=== PATIENT | female | born 1940 | race Caucasian/White ===

== ENCOUNTER 2018-02-05 09:47 | Emergency (ER) | payer OTHER ==
--- NOTE | 2018-02-05 09:51 | PDOC ---
History of Present Illness - General Chief Complaint: Injury Stated Complaint: FALL, LACERATION TO FACE Time Seen by Provider: 02/05/18 09:51 History Source: Patient Exam Limitations: No Limitations - History of Present Illness Initial Comments: 02/05/18 10:45 Pt presents to the ED after mechanical slip and fall in the supermarket. Patient denies LOC, extremity, chest or abdominal pain. Able to recall the entire incident and to ambulate immediately afterward. Denies headache, nausea or vomiting. Presented to the ED because she has a small laceration above her L eye and she is concerned that the laceration might need stitches. Past History - Past Medical History Allergies/Adverse Reactions: Allergies Allergy/AdvReac Type Severity Reaction Status Date / Time Penicillins Allergy Intermediate Hives Verified 02/05/18 09:48 Home Medications: Ambulatory Orders Buspirone HCl [Buspar -] 30 mg PO DAILY 02/05/18 Olanzapine 5 mg PO DAILY 02/05/18 Anemia: Yes ( CHILD) Asthma: No Cancer: No Cardiac Disorders: No CVA: No COPD: No CHF: No Dementia: No Diabetes: No GI Disorders: No Disorders: No HTN: No Hypercholesterolemia: No Liver Disease: No Psychiatric Problems: Yes (ANXIETY) Seizures: No Thyroid Disease: No - Surgical History Abdominal Surgery: Yes (choleycystectomy) Appendectomy: No Cardiac Surgery: No Cholecystectomy: Yes Lung Surgery: No Neurologic Surgery: No Orthopedic Surgery: No - Immunization History Immunization Up to Date: (unknown) - Suicide/Smoking/Psychosocial Hx Smoking Status: Yes Smoking History: Former smoker Years of Tobacco Use: 12 Have you smoked in the past 12 months: No Number of Cigarettes Smoked Daily: 0 If you are a former smoker, when did you quit?: 1999 Hx Alcohol Use: Yes (2 GLASSS PER WEEK) Drug/Substance Use Hx: No Substance Use Type: Alcohol Hx Substance Use Treatment: No Review of Systems - Review of Systems Able to Perform ROS?: Yes Is the patient limited German proficient: No Constitutional: No: Symptoms Reported, See HPI, Chills, Diaphoresis, Fever, Loss of Appetite, Malaise, Night Sweats, Weakness, Weight Stable, Unintentional Wgt. Loss, Unexplained wgt Loss, Other HEENTM: No: Symptoms Reported, See HPI, Eye Pain, Blurred Vision, Tearing, Recent change in vision, Double Vision, Cataracts, Ear Pain, Ocular Prothesis, Ear Discharge, Nose Pain, Nose Congestion, Tinnitus, Nose Bleeding, Hearing Loss , Throat Pain, Throat Swelling, Mouth Pain, Dental Problems, Difficulty Swallowing, Mouth Swelling, Other Respiratory: No: Symptoms reported, See HPI, Cough, Orthopnea, Shortness of Breath, SOB with Exertion, SOB at Rest, Stridor, Wheezing, Productive cough, Hemoptysis, Other Cardiac (ROS): No: Symptoms Reported, See HPI, Chest Pain, Edema, Irregular Heart Rate, Lightheadedness, Palpitations, Syncope, Chest Tightness, Other ABD/GI: No: Symptoms Reported, See HPI, Abdominal Distended, Abd. Pain w/ defecation, Blood Streaked Bowels, Constipated, Diarrhea, Difficulty Swallowing , Nausea, Poor Appetite, Poor Fluid Intake, Rectal Bleeding, Vomiting, Indigestion, Abdominal cramping, Tarry Stools, Other : No: Symptoms Reported, See HPI, Burning, Dysuria, Discharge, Frequency, Flank Pain, Hematuria, Incontinence, Pain, Urgency, Testicular Mass, Testicular Swelling, Lesions, Testicular Pain, Other Musculoskeletal: No: Symptoms Reported, See HPI, Back Pain, Gout, Joint Pain, Joint Swelling, Muscle Pain, Muscle Weakness, Neck Pain, Joint Stiffness, Other Integumentary: Yes: Other (wound above l eyebrow). No: Symptoms Reported, See HPI, Bruising, Change in Color, Change in Hair/Nails, Dryness, Erythema, Flushing, Lesions, Lumps, Pallor, Pruritus, Rash, Sweating Neurological: No: Symptoms reported, See HPI, Headache, Numbness, Paresthesia, Pre-Existing Deficit, Seizure, Tingling, Tremors, Weakness, Unsteady Gait, Ataxia, Dizziness, Other *Physical Exam - Physical Exam General Appearance: Yes: Nourished, Appropriately Dressed. No: Apparent Distress, Disheveled, Mild Distress, Moderate Distress, Severe Distress, Alcohol on Breath, Intoxicated, Cachetic, Obese, Thin, Other HEENT: positive: EOMI, Normal ENT Inspection Neck: positive: Supple (no spinous process tenderness) Respiratory/Chest: positive: Lungs Clear, Normal Breath Sounds Cardiovascular: positive: Regular Rhythm, Regular Rate Musculoskeletal: positive: Normal Inspection Extremity: positive: Normal Capillary Refill Integumentary: positive: Normal Color, Dry, Warm, Other (1 cm laceration in L eyebrow) Neurologic: positive: instructor weaving II-XII NML intact, Fully Oriented, Alert, Normal Mood/ Affect Procedures - Laceration/Wound Repair Left Face Wound Length: to 2.5 cm Wound Explored: clean Wound's Depth, Shape: superficial Irrigated w/ Saline: Yes Betadine Prep: No Anesthesia: 1% Lidocaine w/ Epi Amount of Anesthetic (ccs): 1 Wound Debrided: minimal Wound Repaired With: Sutures Suture Size/Type: 6:0, nylon Number of Sutures: 2 Layer Closure: No Sterile Dressing Applied: Yes Medical Decision Making - Medical Decision Making 02/05/18 10:18 Pt presents to the ED with laceration to the face after mechanical slip and fall. Denies LOC. able to recall entire incident. No use of blood thinners. Laceration repaired in the ED . Will discharge home. Patient instructed to return immediately to the ED for new or worsening symptoms. She understands that her age puts her at increased risk for ICH. I have explained to her that I believe she is low risk given her absence of symptoms, but that she must return immediately for headache or vomiting. She declines CT at this time. 02/05/18 10:23 *DC/Admit/Observation/Transfer Diagnosis at time of Disposition: Laceration of face Qualifiers: Encounter type: initial encounter Qualified Code(s): S01.81XA - Laceration without foreign body of other part of head, initial encounter - Discharge Dispostion Disposition: HOME Condition at time of disposition: Good Decision to Admit order: No - Referrals Referrals: Oscar Kim MD [Primary Care Provider] - - Patient Instructions Printed Discharge Instructions: DI for Laceration Repair -- Simple, DI for Closed Head Injury Additional Instructions: return immediately to the ED for passing out, seizures, other new or worsening symptoms. Return for severe headaches, especially headaches with vomiting. return for redness or swelling in the wound, pus from the wound, other new or worsening symptoms. Make sure that you follow up with your doctor within three days. - Post Discharge Activity
[2018-02-05 09:53] VITALS: TEMP 98.2; BMI 22.3
[2018-02-05] MEDS ORDERED: LIDOCAINE 1%/EPI 1:100000 (20 ML MULTI DOSE VIAL) INF ONE (09:54)
[2018-02-05] MEDS ORDERED: LIDO 2%/EPI 1:200000 PRESRVFRE (20 ML SDVIAL) ONE (09:55)
[2018-02-05 10:24] VITALS: BP 151/78; PULSE 79
== END 2018-02-05 10:30 | disposition home or self-care (01) ==
LOC: FER 09:47
PROC: 0HQ1XZZ Repair Face Skin, External Approach (ICD-10-PCS; principal; 2018-02-05)
DX: S01.112A Laceration without foreign body of left eyelid and periocular area, initial encounter (principal); W18.39XA Other fall on same level, initial encounter; Y93.89 Activity, other specified; Y92.512 Supermarket, store or market as the place of occurrence of the external cause; Z87.891 Personal history of nicotine dependence; F41.9 Anxiety disorder, unspecified
CPT/HCPCS: 12011; 99284-25

== ENCOUNTER 2018-02-10 10:23 | Emergency (ER) | payer OTHER ==
[2018-02-10 10:31] VITALS: BP 134/59; PULSE 80; TEMP 98.2; BMI 21.9
--- NOTE | 2018-02-10 10:36 | PDOC ---
Suture Removal/Wound Check HPI - History of Present Illness Chief Complaint: Suture/Staple Removal(Here) Stated Complaint: SUTURE REMOVAL Time Seen by Provider: 02/10/18 10:36 - Onset of Previous Treatment Comment:: 02/10/18 10:37 Sutures removed 2 from minor laceration above the left eyebrow sustained last Thursday. Wound healing well. Edges well approximated. No drainage or other sign of infection. Continue to dress with bacitracin and cover with a Band-Aid for 3-5 more days until completely healed. Recheck if sign of infection Past History - Past Medical History Allergies/Adverse Reactions: Allergies Allergy/AdvReac Type Severity Reaction Status Date / Time Penicillins Allergy Intermediate Hives Verified 02/10/18 10:26 Home Medications: Ambulatory Orders Buspirone HCl [Buspar -] 30 mg PO DAILY 02/05/18 Olanzapine 5 mg PO DAILY 02/05/18 Anemia: Yes ( CHILD) Asthma: No Cancer: No Cardiac Disorders: No CVA: No COPD: No CHF: No Dementia: No Diabetes: No GI Disorders: No Disorders: No HTN: No Hypercholesterolemia: No Liver Disease: No Psychiatric Problems: Yes (ANXIETY DEPRESSION) Seizures: No Thyroid Disease: No - Surgical History Abdominal Surgery: Yes (choleycystectomy) Appendectomy: No Cardiac Surgery: No Cholecystectomy: Yes Lung Surgery: No Neurologic Surgery: No Orthopedic Surgery: No - Immunization History Immunization Up to Date: (unknown) - Suicide/Smoking/Psychosocial Hx Smoking Status: Yes Smoking History: Former smoker Years of Tobacco Use: 12 Have you smoked in the past 12 months: No Number of Cigarettes Smoked Daily: 0 If you are a former smoker, when did you quit?: 1999 Information on smoking cessation initiated: No Hx Alcohol Use: Yes (SOCIAL) Drug/Substance Use Hx: No Substance Use Type: Alcohol Hx Substance Use Treatment: No *Physical Exam - Vital Signs Last Vital Signs Temp Pulse Resp BP Pulse Ox 98.2 F 80 16 134/59 L 100 02/10/18 10:27 02/10/18 10:27 02/10/18 10:27 02/10/18 10:27 02/10/18 10:27 *DC/Admit/Observation/Transfer Diagnosis at time of Disposition: Visit for suture removal - Discharge Dispostion Disposition: HOME Condition at time of disposition: Improved Decision to Admit order: No - Referrals - Patient Instructions Printed Discharge Instructions: DI for Suture Removal - Post Discharge Activity
== END 2018-02-10 10:40 | disposition home or self-care (01) ==
LOC: FER 10:23
DX: Z48.02 Encounter for removal of sutures (principal)
CPT/HCPCS: 99281-25

== ENCOUNTER 2020-01-11 13:20 | Inpatient (IN) | payer OTHER ==
[2020-01-11] MEDS ORDERED: morphine CARPU-JECT 2 MG/1 ML DISP.SYRIN IVPUSH ONE ×2 (14:00→16:55)
--- NOTE | 2020-01-11 14:17 | PDOC ---
History of Present Illness - General Chief Complaint: Injury Stated Complaint: FALL Time Seen by Provider: 01/11/20 13:35 - History of Present Illness Initial Comments: 01/11/20 14:16 79yo female with PMH of anxiety presents with left hip pain after a fall. States, "I tripped on my own two feet," hit her left hip, did not hit her head or anything else. Denies chest pain, headache, SOB. Denies any other pain. When asked about the bruise on her knee, she said it is two days old and doesn't remember how she got it. Does not remember other falls. states she sometimes crawls to the bathroom at night and has lower back spinal stenosis and pain. ROS GENERAL/CONSTITUTIONAL: No fever or chills. No weakness. HEAD, EYES, EARS, NOSE AND THROAT: No change in vision. No ear pain or discharge. No sore throat. CARDIOVASCULAR: No chest pain or shortness of breath RESPIRATORY: No cough, wheezing, or hemoptysis. GASTROINTESTINAL: No nausea, vomiting, diarrhea or constipation. GENITOURINARY: No dysuria, frequency, or change in urination. MUSCULOSKELETAL: left hip pain. No neck or back pain. SKIN: No rash NEUROLOGIC: No headache, vertigo, loss of consciousness, or change in strength/sensation. ENDOCRINE: No increased thirst. No abnormal weight change HEMATOLOGIC/LYMPHATIC: No anemia, easy bleeding, or history of blood clots. ALLERGIC/IMMUNOLOGIC: No hives or skin allergy. PE GENERAL: Awake, alert, and fully oriented, in no acute distress HEAD: No signs of trauma, normocephalic, atraumatic EYES: PERRLA, EOMI, sclera anicteric, conjunctiva clear ENT: Auricles normal inspection, hearing grossly normal, nares patent, oropharynx clear without exudates. Moist mucosa NECK: Normal ROM, supple, no lymphadenopathy, JVD, or masses LUNGS: No distress, speaks full sentences, clear to auscultation bilaterally HEART: Regular rate and rhythm, normal S1 and S2, no murmurs, rubs or gallops, peripheral pulses normal and equal bilaterally. ABDOMEN: Soft, nontender, normoactive bowel sounds. No guarding, no rebound. No masses EXTREMITIES : echymosis over left knee without tenderness. left pelvic tenderness without obvious deformity or instability NEUROLOGICAL: not able to lift left leg off the bed. otherwise, normal strength and sensation in all extremities. SKIN: Warm, Dry, normal turgor, no rashes or lesions noted Back: no midline tenderness Vital Signs Temp Pulse Resp BP Pulse Ox 97.5 F L 94 H 16 142/64 95 01/11/20 13:28 01/11/20 13:28 01/11/20 13:28 01/11/20 13:28 01/11/20 13:28 MDM: 79yo female with PMH of anxiety presents with left hip pain after a fall, but may have had other falls that she does not recall, as she has echymosis over left knee. states she sometimes crawls to the bathroom at night. DDx includes ICH or c-spine pathology from old fall. Also may have left pelvic and/or knee fracture. -EKG -CXR -CBC, CMP, coags, T&S -2mg morphine, 1000mg tylenol -left pelvis/hip and knee plain films -CT head and c-spine 01/11/20 16:[address] Ulrich who will see the patient tomorrow. Non-operative Left hip/pelvis x-ray: Comminuted fractures of the superior and inferior left pubic ramus with slight inferior displacement of the medial segments. Partially visualized lower lumbar spine is suggestive of multilevel degenerative disc disease. Generalized osteopenia. -CT head and c-spine: negative for acute pathology -knee plain films and CXR: negative for acute pathology 01/11/20 16:55 Given another 2mg morphine IV for pain control 01/11/20 17:39 EKG: Sinus with PACs, rate 89, normal axis and intervals, no ischemic ST-T changes Labs: notable for WBC of 12 with left shift (likely reactive), hyponatremia to 129 Abnormal Lab Results 01/11/20 01/11/20 01/11/20 14:13 14:13 14:13 WBC 12.0 H Absolute Neuts (auto) 10.3 H Neutrophils % 85.8 H PTT (Actin FS) 36.6 H Sodium 129 L Chloride 95 L BUN 6.7 L AST 12 L Signed out to admitting team 01/11/20 17:41 Past History - Medical History Allergies/Adverse Reactions: Allergies Allergy/AdvReac Type Severity Reaction Status Date / Time Penicillins Allergy Intermediate Hives Verified 07/04/19 12:07 Home Medications: Ambulatory Orders Buspirone HCl [Buspar -] 30 mg PO DAILY 02/05/18 Benztropine Mesylate [Cogentin -] 0.5 mg PO BID 01/11/20 Haloperidol [Haldol -] 5 mg PO AM 01/11/20 Haloperidol [Haldol -] 10 mg PO HS 01/11/20 Anemia: Yes ( CHILD) Asthma: No Cancer: No Cardiac Disorders: No CVA: No COPD: No CHF: No DVT: No Dementia: No Diabetes: No Dialysis: No GI Disorders: No Disorders: No HTN: No Hypercholesterolemia: No Kidney Stones: No Liver Disease: No Psychiatric Problems: Yes (ANXIETY DEPRESSION) Seizures: No Thyroid Disease: No Lung CA: No - Surgical History Abdominal Surgery: Yes (choleycystectomy) Appendectomy: No Cardiac Surgery: No Cholecystectomy: Yes Gastric Stapling: No GI Surgery: No Lung Surgery: No Neurologic Surgery: No Orthopedic Surgery: No - Immunization History Immunization Up to Date: (unknown) - Psycho-Social/Smoking History Smoking Status: Yes Smoking History: Former smoker Years of Tobacco Use: 12 Have you smoked in the past 12 months: No Number of Cigarettes Smoked Daily: 0 If you are a former smoker, when did you quit?: 22 years ago Information on smoking cessation initiated: No - Substance Abuse Hx (Audit-C & DAST Scrn) How often the patient has a drink containing alcohol: 2-4 times / month How often the patient has six or more drinks on one occasion: Never Score: In Men: 4 or > Positive; In Women: 3 or > Positive: 2 Screen Result (Pos requires Nsg. Audit-10AR): Negative In the last yr the pt used illegal drug/Rx for NonMed reason: No Score: Yes response is considered Positive: 0 Screen Result (Positive result requires Nsg. DAST-10): Negative *Physical Exam - Vital Signs Last Vital Signs Temp Pulse Resp BP Pulse Ox 97.5 F L 94 H 16 142/64 95 01/11/20 13:28 01/11/20 13:28 01/11/20 13:28 01/11/20 13:28 01/11/20 13:28 ED Treatment Course - LABORATORY CBC & Chemistry Diagram: 01/11/20 14:13 01/11/20 14:13 Discharge - Discharge Information Problems reviewed: Yes Clinical Impression/Diagnosis: Cannot walk, Hyponatremia Pubic ramus fracture Qualifiers: Encounter type: initial encounter Fracture type: closed Laterality: left Qualified Code(s): S32.592A - Other specified fracture of left pubis, initial encounter for closed fracture Condition: Stable - Follow up/Referral Referrals: Oscar Kim MD [Primary Care Provider] - - Patient Discharge Instructions - Post Discharge Activity
[2020-01-11] MEDS ORDERED: MORPHINE SULFATE 2 MG/ML VIAL ONE (14:18)
[2020-01-11] MEDS ORDERED: ACETAMINOPHEN 1000 MG/100 ML VIAL (NON FORMULARY) IVPB ONE (14:26)
[2020-01-11] MEDS ORDERED: ACETAMINOPHEN INJECTION 100 ML IVPB ONE (14:27)
[2020-01-11 14:40] LABS: BASO % 0.5 % (0-2.0); EOS % 0.4 % (0-4.5); HEMATOCRIT 38.7 % (32.4-45.2); HEMOGLOBIN 13.1 GM/dL (10.7-15.3); LYMPH % 8.8 % (8-40); MCH 30.3 pg (25.7-33.7); MCHC 33.8 g/dl (32.0-36.0); MEAN CELL VOLUME 89.6 fl (80-96); MEAN PLT VOLUME 8.4 fl (7.5-11.1); MONO % 4.5 % (3.8-10.2); NEUT % 85.8 % (42.8-82.8); PLATELET COUNT 270 K/MM3 (134-434); RBC 4.32 M/mm3 (3.60-5.2); RDW 12.6 % (11.6-15.6)
[2020-01-11 14:47] LABS: INR 1.04 (0.83-1.09); PROTHROMBIN TIME (PATIENT) 12.3 SEC (9.7-13.0)
[2020-01-11 14:50] LABS: ACTIVATED PTT 36.6 SECONDS (25.2-36.5)
[2020-01-11 15:11] LABS: ALBUMIN 3.7 g/dl (3.4-5.0); BILIRUBIN,TOTAL 0.5 mg/dL (0.2-1); BLOOD UREA NITROGEN 6.7 mg/dL (7-18); CALCIUM 8.5 mg/dL (8.5-10.1); CREATININE 0.7 mg/dL (0.55-1.3); POTASSIUM 3.5 mmol/L (3.5-5.1); TOT PROT 6.8 g/dl (6.4-8.2)
--- NOTE | 2020-01-11 15:50 | PDOC ---
Documentation entered by Angelica North SCRIBE, acting as scribe for Dixie Corona MD. Dixie Corona MD: This documentation has been prepared by the Can concepcion Lincy, SCRIBE, under my direction and personally reviewed by me in its entirety. I confirm that the documentation accurately reflects all work, treatment, procedures, and medical decision making performed by me. Attending Attestation - Resident Resident Name: RenayMichael - ED Attending Attestation I have performed the following: I have examined & evaluated the patient, The case was reviewed & discussed with the resident, I agree w/resident's findings & plan, Exceptions are as noted - HPI HPI: 01/11/20 15:07 79-year-old female with a past medical history significant for anxiety, depression, chronic lower back pain, and Lumbar stenosis (recently diagnosed) who presents to the emergency department via EMS s/p a mechanical fall. The patient reports she was walking when she tripped and fell. Denies LOC or head injury. The patient reports associated pain to her left hip and difficulty/unable to ambulate. The patient reports ecchymosis to her left knee, but isnt sure what caused it. The patient reports she suffered a fall 2 days ago, but cant recall what caused the fall. The patient reports secondary to the chronic lower back pain, she sometimes has to crawl from the bedroom to the bathroom. The patient lives with her , who is present at her bedside. Denies new numbness or tingling. Denies nausea, vomiting, dizziness. 01/11/20 15:36 - Physicial Exam PE: 01/11/20 15:41 awake alert head atraumatic. no cervical spine tenderness. lungs clear bilat heart rrrr no mrg abd soft nt pelvis left anterior groin ttp. lateral hip ttp. decr rom left hip secondary to pain. knee eccymotic, decr ROM. ankle NT FROM 2+ dp pt right hip FROM NT right knee FROM ankle FROM. nuero awake alert. oriented x 3. - Medical Decision Making 01/11/20 15:43 79 yo F here s/p fall today states mechanical trip and fall. also had fall 2 days ago. has been crawling to bathroom lately for severe back pain. pt unsure of details of event two days ago. so will ct head r/o ich, xray chest pelvis left hip. pain control labs will likely require admission as pt cant walk secondary to pain. xray pelvis with pubic rami fraCTURE LEFT inferior/ superior. will consult orth opedics. Heart Score/ECG Review #1 General ECG Interpretation: Sinus Rhythm, Normal Rate (89), Normal Intervals, No acute ischemic changes Discharge - Discharge Information Problems reviewed: Yes Clinical Impression/Diagnosis: Pubic ramus fracture, Cannot walk - Follow up/Referral Referrals: Oscar Kim MD [Primary Care Provider] - - Patient Discharge Instructions - Post Discharge Activity
[2020-01-11] MEDS ORDERED: morphine CARPU-JECT 4 MG/1 ML DISP.SYRIN IVPUSH ONE (16:52)
[2020-01-11] MEDS ORDERED: ACETAMINOPHEN 325 MG TABLET (FP) PO PRN (17:13)
[2020-01-11] MEDS ORDERED: MAGNESIUM SULF 50% (8.12 MEQ/2 ML-1 GM VIAL) IVPB ONE (17:37)
--- NOTE | 2020-01-11 17:50 | HP ---
CHIEF COMPLAINT: s/p fall PCP: HISTORY OF PRESENT ILLNESS: Patient is an 79 y/o female with a psychiatric history who presents s/p fall. Patient was walking from the kitchen to the living room when she had a mechanical fall and notes she landed on her left hip. She did not hit her head and denies loss of consciousness. She currently states the pain is tolerable. Denies fever, chills, nausea, vomiting. ER course was notable for: (1) (2) (3) Recent Travel: denies PAST MEDICAL HISTORY: psychiatric history PAST SURGICAL HISTORY: cholecystectomy 10 years ago Social History: Smoking: denies Alcohol: denies Drugs: denies Allergies Penicillins Allergy (Intermediate, Verified 07/04/19 12:07) Hives HOME MEDICATIONS: Home Medications Medication Instructions Recorded Buspirone HCl [Buspar -] 30 mg PO DAILY 02/05/18 Benztropine Mesylate [Cogentin -] 0.5 mg PO BID 01/11/20 Haloperidol [Haldol -] 5 mg PO AM 01/11/20 Haloperidol [Haldol -] 10 mg PO HS 01/11/20 REVIEW OF SYSTEMS CONSTITUTIONAL: Absent: fever, chills, diaphoresis, generalized weakness, malaise, loss of appetite, weight change HEENT: Absent: rhinorrhea, nasal congestion, throat pain, throat swelling, difficulty swallowing, mouth swelling, ear pain, eye pain, visual changes CARDIOVASCULAR: Absent: chest pain, syncope, palpitations, irregular heart rate, lightheadedness, peripheral edema RESPIRATORY: Absent: cough, shortness of breath, dyspnea with exertion, orthopnea, wheezing, stridor, hemoptysis GASTROINTESTINAL: Absent: abdominal pain, abdominal distension, nausea, vomiting, diarrhea, constipation, melena, hematochezia GENITOURINARY: Absent: dysuria, frequency, urgency, hesitancy, hematuria, flank pain, genital pain MUSCULOSKELETAL: joint swelling, Absent: myalgia, arthralgia, back pain, neck pain SKIN: Absent: rash, itching, pallor HEMATOLOGIC/IMMUNOLOGIC: Absent: easy bleeding, easy bruising, lymphadenopathy, frequent infections ENDOCRINE: Absent: unexplained weight gain, unexplained weight loss, heat intolerance, cold intolerance NEUROLOGIC: Absent: headache, focal weakness or paresthesias, dizziness, unsteady gait, seizure, mental status changes, bladder or bowel incontinence PSYCHIATRIC: Absent: anxiety, depression, suicidal or homicidal ideation, hallucinations. PHYSICAL EXAMINATION Vital Signs Temperature 96.9 F L 01/11/20 17:19 Pulse Rate 88 01/11/20 17:19 Respiratory Rate 18 01/11/20 16:43 Blood Pressure 151/81 01/11/20 17:19 O2 Sat by Pulse Oximetry (%) 97 01/11/20 17:19 GENERAL: Awake, alert, and fully oriented, in no acute distress. HEAD: Normal with no signs of trauma. EYES: Pupils equal, round and reactive to light, extraocular movements intact EARS, NOSE, THROAT:. Moist mucous membranes. NECK: Normal range of motion, supple without lymphadenopathy, JVD, or masses. LUNGS: Breath sounds equal, clear to auscultation bilaterally. No wheezes, and no crackles. No accessory muscle use. HEART: Regular rate and rhythm, 3/6 upper left border systolic murmur ABDOMEN: Soft, nontender, not distended, normoactive bowel sounds, no guarding, no rebound, no masses. MUSCULOSKELETAL No CVA tenderness. bruising over left knee LOWER EXTREMITIES no edema, pain over left hip, 2+ pulses R and L DP SKIN: Warm, dry, normal turgor, no rashes or lesions noted, normal capillary refill. CBC, BMP 01/11/20 14:13 01/11/20 14:13 ASSESSMENT/PLAN: Patient is an 79 y/o female with a psychiatric history who is admitted for left pelvic fracture. #Left pelvic fracture - as seen on Xray - Dr. Ulrich, orthopedics aware, no surgical management at this time - oxycodone 5 q6h or acetaminophen for pain - QTC mildly prolonged 476, 2gm Mg ordered - knee xray: no evidence of fracture - fall risk precautions #psychiatric hx, anxiety - haldol 5 mg am - haldol 10 mg pm - benztropine 0.5 mg bid - buspirone 30 mg daily #systolic murmur - unclear if new, if signs of syncope consider echo DVT ppx: lovenox 40 sq daily FEN - regular diet Dispo: monitor on med surg, f/u with ortho Family Medical History Family History: As Documented Visit type - Medication Review Med list reviewed for High Risk Meds patients 65 and older: Yes - Emergency Visit Emergency Visit: Yes ED Registration Date: 01/11/20 Care time: The patient presented to the Emergency Department on the above date and was hospitalized for further evaluation of their emergent condition. - New Patient This patient is new to me today: Yes Date on this admission: 01/13/20 - Critical Care Critical Care patient: No ATTENDING PHYSICIAN STATEMENT I saw and evaluated the patient. I reviewed the resident's note and discussed the case with the resident. I agree with the resident's findings and plan as documented. SUBJECTIVE: OBJECTIVE: ASSESSMENT AND PLAN:
[2020-01-11] MEDS ORDERED: MAGNESIUM SULFATE IN WATER 2 GM/50 ML IVPB IVPB ONE (18:26)
[2020-01-11] MEDS: BENZTROPINE MESYLATE 0.5 MG TABLET (FP) PO SCH (22:46)
[2020-01-12] MEDS: HALOPERIDOL 5 MG TABLET PO SCH ×3 (01:47→21:59)
[2020-01-12] MEDS: oxyCODONE HCL 5 MG TABLET PO PRN ×3 (01:48→22:11)
[2020-01-12 03:49] VITALS: BMI 29.1
[2020-01-12 07:01] LABS: BASO % 0.7 % (0-2.0); EOS % 0.5 % (0-4.5); HEMATOCRIT 36.3 % (32.4-45.2); HEMOGLOBIN 12.3 GM/dL (10.7-15.3); LYMPH % 16.4 % (8-40); MCH 30.4 pg (25.7-33.7); MCHC 33.9 g/dl (32.0-36.0); MEAN CELL VOLUME 89.7 fl (80-96); MEAN PLT VOLUME 8.2 fl (7.5-11.1); MONO % 11.8 % (3.8-10.2); NEUT % 70.6 % (42.8-82.8); PLATELET COUNT 241 K/MM3 (134-434); RBC 4.05 M/mm3 (3.60-5.2); RDW 12.7 % (11.6-15.6)
--- OUTSIDE RECORDS SUMMARY | 2020-01-12 07:23 | XMS ---
:1940 Author Organization [facility] Care Team Providers Name Role Phone Kai North MD Unavailable Unavailable Kai North MD Unavailable Unavailable Kai North MD Unavailable Unavailable Kai North MD Unavailable Unavailable Kai North MD Unavailable Unavailable EMERGENCY SERVICE, X Unavailable Unavailable NOBLERMANASA Unavailable Unavailable Re-disclosure Warning The records that you are about to access may contain information from federally- assisted alcohol or drug abuse programs. If such information is present, then the following federally mandated warning applies: This information has been disclosed to you from records protected by federal confidentiality rules (42 CFR part 2). The federal rules prohibit you from making any further disclosure of this information unless further disclosure is expressly permitted by the written consent of the person to whom it pertains or as otherwise permitted by 42 CFR part 2. A general authorization for the release of medical or other information is NOT sufficient for this purpose. The Federal rules restrict any use of the information to criminally investigate or prosecute any alcohol or drug abuse patient.The records that you are about to access may contain highly sensitive health information, the redisclosure of which is protected by Article 27-F of the [facility] Public Health law. If you continue you may haveaccess to information: Regarding HIV / AIDS; Provided by facilities licensed or operated by the [facility] Office of Mental Health; or Provided by the [facility] Office for People With Developmental Disabilities. If such information is present, then the following [facility] mandated warning applies: This information has been disclosed to you from confidential records which are protected by state law. State law prohibits you from making any further disclosure of this information without the specific written consent of the person to whom it pertains, or as otherwise permitted by law. Any unauthorized further disclosure in violation of state law may result in a fine or usp sentence or both. A general authorization for the release of medical or other information is NOT sufficient authorization for further disclosure. Allergies and Adverse Reactions Type Description Substance Reaction Status Data Source(s ) Drug allergy Penicillins Penicillins [facility] Encounters Encounter Providers Location Date Indications Data Source(s ) Inpatient Attender: ARNALDO [facility] MANASA MCINTOSH EDT - Corporat ion 11/03/2019 01:02:00 PM EDT SHIZOPHRENIA Patient admitted. Emergency Attender: ARNALDO 09/16/[address] [facility]00 PM EDT [facility] EMERGENCY SERVICE, Corpor ation XAdmitter: MANASA MCINTOSH EVALUATION Emergency Attender: Kai 12/25/2018 SNGL EPISODE NO Ulic[facility] Can MDAdmitter: 10:31:00 PM EDT RESPONSE [facility] Care Kai North MD Corpora tion SNGL EPISODE NO RESPONSE Medications Medication Brand Start Product Dose Route Administrative Pharmacy at Indications Reaction Description Data Name Date Form Instructions Instructions Source(s) 0.9% NaCl 0.9% UNK active 0.9% NaCl [facility] IV NaCl 2019 mL IV 500 mL [facility] IV 05:09: Health 21 PM Care EDT Corporatio n Medication administered onsite BuSpar BuSpar 999 oral completed BuSpar [facility] Depakote Depakote 999 oral discontinued Depa kote [facility] Amlodipine 10 Amlodipine completed [facility] MG Oral Tablet [10 mg Cou [facility] Amlodipine [10 Tablet]: 10 Care mg Tablet]: 10 MG Oral Q9AM Corporation MG Oral Q9AM buspirone Buspirone [10 completed [facility] hydrochloride mg Tablet]: [facility] 10 MG Oral 10 MG Oral Car e Tablet Corporation Buspirone [10 mg Tablet]: 10 MG Oral Haloperidol 5 Haloperidol completed [facility] MG Oral Tablet [5 mg Coun [facility] Haloperidol [5 Tablet]: 5 MG Care mg Tablet]: 5 Oral Cor poration MG Oral DIRECTED DIRECTED benztropine Benztropine completed [facility] mesylate 0.5 MG [0.5 mg [facility] Oral Tablet Tablet]: 0.5 Care Benztropine MG Oral 9-9 C orporation [0.5 mg Tablet]: 0.5 MG Oral 9-9 Zyprexa Zyprexa 999 oral completed Zyprexa [place] [facility] Insurance Providers Payer name Policy type Policy ID Covered Covered democrat's Policy P suzy / Coverage democrat ID relationship to [place] [employer] ormation type [place] [id number] SP [id number] HEALTHCARE (MEDICARE) UNK UNK UNK UNK [id number] [place] [id number] SP [id number] HEALTHCARE (MEDICARE) Problems, Conditions, and Diagnoses Code Display Name Description Problem Type Effective Data Sour ce(s) Dates X58.XXXA Exposure to other EXPOSURE TO OTHER Diagnosis 11/03/2019 [facility] specified factors, SPECIFIED FACTORS, 01:02:00 PM [facility] initial encounter INITIAL ENCOUNTER EDT [facility] [employer] Y92.[address] IN UNSP Diagnosis 11/03/2019 [facility] in unspecified NON-INSTITUT 01:02:00 PM [facility] non-institutional (PRIVATE) RESIDENCE EDT Care (private) residence PLACE Corpo ration as the place of occurrence of the external cause Z91.128 Patient's PATIENT'S INTENTL Diagnosis 11/03/2019 [facility] intentional UNDRDOSE OF MEDS 01:02:00 PM [facility] underdosing of REGIMEN FOR OTH EDT Care medication regimen REASON Corpor ation for other reason T43.596A Underdosing of UNDERDOSING OF OTH Diagnosis 11/03/2019 Jono ibarra other ANTIPSYCHOTICS AND 01:02:00 PM [facility] antipsychotics and NEUROLEPTICS, INIT EDT Care neuroleptics, [employer] initial encounter Z90.49 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 [address] [place] [address] other specified OTHER SPECIFIED 01:02:00 PM [facility] parts of digestive PARTS OF DIGESTIVE EDT Care tract TRACT [employer] Z91.5 Personal history of PERSONAL HISTORY OF Diagnosis [address] [place] [address] self-harm SELF-HARM 01:02:00 PM [facility] EDT Care [employer] F20.9 Schizophrenia, SCHIZOPHRENIA, Diagnosis 09/16/2019 [place] [facility] unspecified UNSPECIFIED 11:39:[facility] [employer] Z88.0 Allergy status to ALLERGY STATUS TO Diagnosis 12/25/2018 [facility] penicillin PENICILLIN 10:31:00 [facility] [employer] R42 Dizziness and DIZZINESS AND Diagnosis 12/25/2018 [facility] amandeep giddiness GIDDINESS 10:31:00 PM [facility] [employer] F41.9 Anxiety disorder, ANXIETY DISORDER, Diagnosis 12/25/2018 [facility] unspecified UNSPECIFIED 10:31:00 [facility] [employer] F25.9 Schizoaffective SCHIZOAFFECTIVE Diagnosis 12/25/2018 [place] krystina disorder, DISORDER, 10:31:00 PM [facility] unspecified UNSPECIFIED T [facility] [employer] R55 Syncope and SYNCOPE AND Diagnosis 12/25/2018 [facility] collapse COLLAPSE 10:31:00 PM [facility] [employer] Results ID Date Data Source [id number] 10/26/2019 03:21:00 PM EDT [facility] [employer] Name Value Range Interpretation Code Description Data Floridalma rce(s) Supporting Document(s ) SARS-COV-2 [facility] RNA RT-PCR [facility] This lab was ordered by [facility] and reported by [facility]. ID Date Data Source [id number] 09/17/2019 09:03:00 AM EDT [facility] [id number] Corporation Name Value Range Interpretation Description Data Sup porting Code Source(s) Document(s ) Leukocytes 7.4 k/mm3 4.8-10 <td> 09/17/2019 [facility] [#/volume] .8 09:03</td><td> County in Blood by k/mm3 WBC </td><td> Glythera count 7.4
(4.8-10.8) k/mm3 </td> Erythrocytes 4.39 m/mm3 3.90-5 <td> 09/17/2019 [facility] madhuri [#/volume] .20 09:03</td><td> County in Blood m/mm3 RBC </td><td> [employer] 4.39
(3.90-5.20) m/mm3 </td> Hemoglobin 13.4 g/dL 12.0-1 <td> 09/17/2019 [facility] [Mass/volume 6.0 09:03</td><td> County ] in Blood g/dL HGB </td><td> Health Care [facility] 13.4
(12.0-16.0) g/dL </td> Hematocrit 40.4 % 37.0-4 <td> 09/17/2019 [facility] [Volume 7.0 % 09:03</td><td> County Fraction] of HCT </td><td> Health Care Blood by [employer] Automated 40.4 count
(37.0-47.0) % </td> Erythrocyte 30.5 pg 27.0-3 <td> 09/17/2019 [facility] mean 1.5 pg 09:03</td><td> [facility] corpuscular MCH </td><td> Health [facility] hemoglobin [facility] [Entitic 30.5 mass] by Automated
count (27.0-31.5) pg </td> Erythrocyte 33.2 % 32.0-3 <td> 09/17/2019 [facility] mean 6.0 % 09:03</td><td> [facility] corpuscular MCHC </td><td> Health Care hemoglobin [employer] concentratio 33.2 n [Mass/volume
] in Blood (32.0-36.0) % from Fetus </td> by Automated count Erythrocyte 92.0 fL 81.0-9 <td> 09/17/2019 [facility] mean 9.0 fL 09:03</td><td> [facility] corpuscular MCV </td><td> Health Care volume [employer] [Entitic 92.0 volume] by Automated
count (81.0-99.0) fL </td> Platelet 10.8 fL 9.8-12 <td> 09/17/2019 [facility] mean volume .8 fL 09:03</td><td> [facility] [Entitic MPV </td><td> Health Care volume] in [facility] Blood by 10.8 Automated count
(9.8-12.8) fL </td> Erythrocyte 13.2 % 11.5-1 <td> 09/17/2019 [facility] distribution 4.5 % 09:03</td><td> County width RDW </td><td> Health Care [[employer] volume] by 13.2 Automated count
(11.5-14.5) % </td> Lymphocytes 11.0 % 17.0-5 <td> 09/17/2019 [facility] [#/volume] 0.0 % 09:03</td><td> County in Blood by Lymphocytes Health Care Automated </td><td><michelle Corporation count raph styleCode="Bold "> 11.0 L </paragraph>
(17.0-50.0) % </td> Platelets 322 k/mm3 160-41 <td> 09/17/2019 [facility] [#/volume] 0 09:03</td><td> County in Blood by k/mm3 Platelet Count Health Care Automated </td><td> [employer] count 322
(160-410) k/mm3 </td> Monocytes/Le 4.6 % 0.0-11 <td> 09/17/2019 [facility] ukocytes .0 % 09:03</td><td> County [Pure number Monocytes. Health Care fraction] in </td><td> [employer] Blood by Automated 4.6 count
(0.0-11.0) % </td> Basophils+Eo 1.1 % 0.0-5. <td> 09/17/2019 [facility] sinophils+Mo 0 % 09:03</td><td> County nocytes Eosinophils Health Care [#/volume] </td><td> [employer] in Blood by Automated 1.1 count
(0.0-5.0) % </td> Basophils 0.8 % 0.0-2. <td> 09/17/2019 [facility] [#/volume] 0 % 09:03</td><td> County in Blood by Basophils Health Care Automated </td><td> Corporation count 0.8
(0.0-2.0) % </td> Immature 0.3 % 0.0-0. <td> 09/17/2019 [facility] granulocytes 5 % 09:03</td><td> County /100 IG% </td><td> Health Care leukocytes Corporation in Blood by 0.3 Automated count
(0.0-0.5) %
The IG fraction represents metamyelocytes, myelocytes and/or
promyelocytes and is only reported as part of the automated
differential when found at a percentage of less than 6.
If higher than 6%, a manual differential will be performed.

(0.0-0.5) % </td> Glucose 103 mg/dL 70-105 <td> 09/17/2019 [facility] [Mass/volume mg/dL 09:03</td><td> County ] in Blood Glucose-Serum Health Care </td><td> Corporation 103
(70-105) mg/dL </td> Neutrophils 82.2 % 40.0-7 <td> 09/17/2019 [facility] [#] in Body 6.0 % 09:03</td><td> [facility] fluid by Neutrophils Health Care Manual count </td><td><michelle Corporation raph styleCode="Bold "> 82.2 H </paragraph>
(40.0-76.0) % </td> Sodium 137 mEq/L 135-14 <td> 09/17/2019 [facility] [Moles/volum 5 09:03</td><td> County e] in Serum mEq/L Sodium-Serum Health Care or Plasma </td><td> Corporation 137
(135-145) mEq/L </td> Chloride 101 mEq/L 98-107 <td> 09/17/2019 [facility] [Moles/volum mEq/L 09:03</td><td> County e] in Serum Chloride Health Care or Plasma </td><td> Corporation 101
(98-107) mEq/L </td> Potassium 4.2 mEq/L 3.5-5. <td> 09/17/2019 [facility] [Moles/volum 1 09:03</td><td> County e] in Serum mEq/L Potassium-Serum Health Care or Plasma </td><td> Corporation 4.2
(3.5-5.1) mEq/L </td> Urea 13 mg/dL 6-22 <td> 09/17/2019 [facility] nitrogen mg/dL 09:03</td><td> [facility] [Mass/volume BUN </td><td> Health Care ] in Blood Corporation 13
(6-22) mg/dL </td> Carbon 28 mEq/L 22-30 <td> 09/17/2019 [facility] dioxide, mEq/L 09:03</td><td> [facility] total CO2 </td><td> Health Care [Moles/volum Corporation e] in Serum 28 or Plasma
(22-30) mEq/L </td> Creatinine 0.79 mg/dL 0.57-1 <td> 09/17/2019 [facility] [Moles/volum .11 09:03</td><td> [facility] e] in Serum mg/dL Creatinine. Health Care or Plasma </td><td> [employer] 0.79
(0.57-1.11) mg/dL </td> Aspartate 17 U/L 4-35 <td> 09/17/2019 [facility] aminotransfe U/L 09:03</td><td> [facility] rase AST (SGOT) Health Care [Enzymatic </td><td> Corporation activity/vol ume] in 17 Serum or
Plasma (4-35) U/L </td> Alanine 11 U/L 6-55 <td> 09/17/2019 [facility] aminotransfe U/L 09:03</td><td> [facility] rase ALT (SGPT) Health Care [Enzymatic </td><td> Corporation activity/vol ume] in 11 Serum or
Plasma (6-55) U/L </td> Proteins - 7.4 g/dL 6.4-8. <td> 09/17/2019 [facility] Total 3 g/dL 09:03</td><td> [facility] Proteins - Health Care Total Corporation </td><td> 7.4
(6.4-8.3) g/dL </td> Bilirubin.to 0.4 mg/dL 0.2-1. <td> 09/17/2019 [facility] valerie 3 09:03</td><td> [facility] [Mass/volume mg/dL Bilirubin - Health Care ] in Blood Total [facility] </td><td> 0.4
(0.2-1.3) mg/dL </td> Albumin 4.1 g/dL 3.4-4. <td> 09/17/2019 [facility] [Mass/volume 8 g/dL 09:03</td><td> [facility] ] in Serum Albumin Health Care or Plasma </td><td> [facility] 4.1
(3.4-4.8) g/dL </td> Globulin 3.3 gm/dL 2.9-4. <td> 09/17/2019 [facility] [Mass/volume 0 09:03</td><td> [facility] ] in Serum gm/dL Globulin Health [facility] </td><td> [facility] 3.3
(2.9-4.0) gm/dL </td> Anion gap in 8 mEq/L 7-13 <td> 09/17/2019 [facility] Serum or mEq/L 09:03</td><td> [facility] Plasma Anion Gap [facility] Care </td><td> [employer] 8
(7-13) mEq/L </td> Calcium 9.3 mg/dL 8.6-10 <td> 09/17/2019 [facility] [Mass/volume .2 09:03</td><td> [facility] ] in Blood mg/dL Calcium Health Care </td><td> [employer] 9.3
(8.6-10.2) mg/dL </td> Hemolysis No Hemolysis <td> 09/17/2019 [facility] index of 09:03</td><td> [facility] Serum or Hemolysis Index Health Care Plasma </td><td> [employer] No Hemolysis
</td> Lipemic No Lipemia <td> 09/17/2019 [facility] index of 09:03</td><td> [facility] Serum or Lipemia Index Health Care Plasma </td><td> [employer] No Lipemia
</td> Phosphate 3.3 mg/dL 2.3-4. <td> 09/17/2019 [facility] [Mass/volume 7 09:03</td><td> County ] in Serum mg/dL Inorganic Health Care or Plasma Phosphorus [employer] </td><td> 3.3
(2.3-4.7) mg/dL </td> Icteric Non Icteric <td> 09/17/2019 [facility] index of 09:03</td><td> [facility] Serum or Icteric Index Health Care Plasma </td><td> [employer] Non Icteric
</td> Appearance Clear <td> 09/17/2019 [facility] of Urine 10:50</td><td> [facility] Appearance Health Care </td><td> [employer] Clear
(CLEAR) </td> Specific 1.008 {} 1.000- <td> 09/17/2019 [facility] gravity of 1.035 10:50</td><td> [facility] Urine by Specific Health Care Test strip [place] [employer] </td><td> 1.008
(1.000-1.035) </td> Protein Negative <td> 09/17/2019 [facility] [Presence] 10:50</td><td> County in Urine by Protein Health Care Automated [employer] test strip </td><td> Negative
(NEGATIVE) </td> Urobilinogen 0.2 mg/dL 0.0-2. <td> 09/17/2019 [facility] [Presence] 0 10:50</td><td> County in Urine by mg/dL Urobilinogen Health Care Automated </td><td> [employer] test strip 0.2
(0.0-2.0) mg/dL </td> Glucose Negative <td> 09/17/2019 [facility] [Presence] 10:50</td><td> County in Urine by Glucose_ Health Care Test strip </td><td> Corporation Negative
(NEGATIVE) </td> Nitrite Negative <td> 09/17/2019 [facility] [Presence] 10:50</td><td> County in Urine by Nitrites Health Care Test strip </td><td> Corporation Negative
(NEGATIVE) </td> Leukocyte Negative <td> 09/17/2019 [facility] esterase 10:50</td><td> [facility] [Presence] Leukocytes Health Care in Urine by Esterase [employer] Test strip </td><td> Negative
(NEGATIVE) </td> Leukocyte Not Indicated <td> 09/17/2019 [facility] esterase 10:50</td><td> [facility] [Presence] Physiochemica Urine Health Care in Urine by l tests: Microscopic. [employer] Test strip Protein, </td><td> Leukocyte, Not Indicated Blood and
Nitrates are negative. Physiochemical Microscopic tests: Protein, exam not Leukocyte, performed. Blood and Nitrates are
negative. Microscopic exam not performed.

</td> Hemoglobin 5.1 % 4.0-5. <td> 09/17/2019 [facility] A1C 6 % 09:03</td><td> [facility] Hemoglobin A1C Health Care </td><td> [employer] 5.1
(4.0-5.6) %
Increased risk for diabetes mellitus is seen in patients with HgA1C values
between 5.7-6.4%. Values > or = 6.5% are considered diagnostic of diabetes
mellitus.
Hemolytic anemias, hemoglobinopath ies, or recent transfusion may impact
HbA1c results. Clinical correlation is recommended.
===
ESTIMATED AVERAGE GLUCOSE (eAG)
---
RELATIONSHIP BETWEEN A1C AND eAG
===
A1C(%) eAG(mg/dL)
6 1 26
7 1 54
8 1 83
9 2 12
10 240
11 269
12 298
Source: Adapted from [place] [employer]. Standards of medical
care in diabetes-2014. Diabetes Care.2014;37(García pp 1):S14-S80, table 8.

(4.0-5.6) % </td> Magnesium 1.9 mg/dL 1.6-2. <td> 09/17/2019 [facility] [Mass/volume 6 09:03</td><td> [facility] ] in Serum mg/dL Magnesium Level Health Care or Plasma </td><td> [employer] 1.9
(1.6-2.6) mg/dL </td> Cholesterol 67 mg/dL >60 <td> 09/17/2019 [facility] in HDL mg/dL 09:03</td><td> [facility] [Mass/volume HDL Cholesterol Health Care ] in Serum </td><td> Corporation or Plasma 67
(>60) mg/dL </td> Cholesterol 95 mg/dL <150 <td> 09/17/2019 [facility] in LDL mg/dL 09:03</td><td> [facility] [Mass/volume LDL Cholesterol Health Care ] in Serum </td><td> Corporation or Plasma 95
(<150) mg/dL </td> Cholesterol 174 mg/dL 125-24 <td> 09/17/2019 [facility] [Moles/volum 0 09:03</td><td> [facility] e] in Serum mg/dL Cholesterol Health Care or Plasma </td><td> [employer] 174
(125-240) mg/dL </td> Triglyceride 61 mg/dL 30-200 <td> 09/17/2019 [facility] [Mass/volume mg/dL 09:03</td><td> [facility] ] in Serum Triglyceride Health Care or Plasma </td><td> [employer] 61
(30-200) mg/dL </td> ID Date Data Source [id number] 09/16/2019 05:08:00 PM EDT [facility] [id number] Corporation Name Value Range Interpretation Description Data Sup porting Code Source(s) Document(s ) Head (PACSIMAGE <td> 09/16/2019 [facility] Without 17:10</td><td> [facility] Contrast- ) Final Head Without Health Care CT Result Contrast-CT Corporation Name: CHANTEL, </td><td><susu Gaxiola ph styleCode="Italic Sex: F : s">(PACSIMAGE 1940 Location: F )</paragraph><br/ Admitting >
Final Physician: Result EMERGENCY

SERVICE Name: Long GOLDENing TRISTIAN Gaxiola Physician:
MRN: ROWAN RUIZ [id number] Sex: F Exam: CT
HEAD C- : 1940 09/16/2019 Location: F 17:22
CLINICAL Admitting INDICATION: Physician: Altered mental EMERGENCY SERVICE status.
TECHNIQUE: CT Requesting images of the Physician: head were ROWAN RUIZ obtained without the

administration Exam: CT HEAD C- of contrast. 09/16/2019 17:22 COMPARISON:

12/26/2018. CLINICAL FINDINGS: INDICATION: Ventricular Altered mental caliber is status. within normal

limits for the TECHNIQUE: CT patient's images of the stated age. head were There is no obtained without intracranial the mass or mass administration effect.
Density of the of contrast. cerebral white

matter is COMPARISON: decreased 12/26/2018. compatible

with moderate FINDINGS: microangiopath

ic change. A Ventricular small, chronic caliber is within infarct in normal limits for the left the patient's cerebellum is
unchanged. A stated age. small chronic
infarct There is no within the intracranial mass anterior limb or mass effect. of the right
internal Density of the capsule. Again cerebral white noted No matter is acute decreased intraparenchym compatible al or
subarachnoid with moderate hemorrhage is microangiopathic present. change. A small, There is no chronic infarct extraaxial
collection. in the left The cerebellum is visualized unchanged. A paranasal small chronic sinuses are infarct well aerated.
within The mastoid the anterior limb air cells are of the right well aerated. internal capsule. The Again visualized
noted orbits are
unremarkable. No acute There is no intraparenchymal depressed or subarachnoid calvarial hemorrhage is fracture. present. IMPRESSION:
There Small is no extraaxial chronic collection. infarcts,

without The visualized significant paranasal sinuses change since are well aerated. 12/26/2018.
No acute The mastoid intracranial air cells are hemorrhage. well aerated.
Resident The visualized Radiologist: orbits are Ha unremarkable. Kylie Blanton
Resident There is no Radiologistt depressed Attending calvarial Radiologist: fracture. Nicanor Sotelo MD

Finalizing IMPRESSION: Radiologist:
Nicanor Ruano chronic infarcts, without Transcribed significant Date: change since 09/16/2019 12/26/2018. 17:43
No Finalized acute Date: intracranial 09/16/2019 hemorrhage. 18:15

<b r/> Resident Radiologist: Ha Blanton MD Resident Radiologistt
Attending Radiologist: Nicanor Sotelo MD
Finalizing Radiologist: Nicanor Sotelo MD
Transcribed Date: 09/16/2019 17:43
Finalized Date: 09/16/2019 18:15

</td> Chest (PACSIMAGE <td> 09/16/2019 [facility] Portable 17:08</td><td> [facility] ) Final Chest Portable Health Care Result </td><td>[employer] Name: tyler GOLDEN styleCode="Italic s">(PACSIMAGE Sex: F : 1940 )</paragraph><br/ Location: F >
Final Admitting Result Physician:

EMERGENCY Name: SPENCER GOLDEN Requesting
MRN: Physician: [id number] Sex: F ROWAN RUIZ
Exam: : 1940 CHEST PORTABLE Location: F 09/16/2019
16:49 Admitting Clinical Physician: History/Reason EMERGENCY SERVICE for
Examination: Requesting Altered mental Physician: daniel RUIZ Comparison: Chest

radiograph-- Exam: CHEST December 25, PORTABLE 2019. 09/16/2019 16:49 Technique/Posi tion: Frontal

chest Clinical radiograph. History/Reason Findings: for Examination: Tubes/lines: Altered mental None. statuss Heart and

mediastinum: Comparison: Chest Stable. radiograph-- Lungs, pleura, December 25, and airways: 2018. No parenchymal

opacities, Technique/Positio effusion or n: Frontal chest pneumothorax radiograph. are present..

Bones and Findings: soft tissues:

Stable. Tubes/lines: Impression: None. No

radiographic Heart and evidence of mediastinum: acute Stable. pulmonary

disease. Lungs, pleura, and airways: No Resident parenchymal Radiologist: opacities, Attending effusion Radiologist:
or Tripp Martinez pneumothorax are MD present.. Finalizing

Radiologist: Bones and soft Tripp Martinez tissues: Stable. Transcribed

Date: Impression: 09/16/2019
No 16:55 radiographic Finalized evidence of acute Date: pulmonary 09/16/2019 disease. 16:55

<b r/>

Resident Radiologist:
Attending Radiologist: Tripp Martinez MD
Finalizing Radiologist: Tripp Martinez MD
Transcribed Date: 09/16/2019 16:55
Finalized Date: 09/16/2019 16:55

</td> Procedure Social History Code Duration Value Status Description Data Source(s ) Smoking Unknown if ever completed Unknown if ever [facility] smoked smoked [employer] Vital Signs ID Date Data Source UNK Name Value Range Interpretation Code Description Data Source(s) Diastolic blood 70 {} Normal (applies to 70 {} [place] pressure non-numeric results) [facility] Systolic blood 138 {} Normal (applies to 138 {} [place] pressure non-numeric results) [facility] First Respiration 20.0000 {} Normal (applies to 20.0000 {} [place] rate Set non-numeric results) [facility] Heart rate 81.0000 {} Normal (applies to 81.0000 {} [place] non-numeric results) [facility] Body temperature 98.5000 {} Normal (applies to 98.5000 {} [place] non-numeric results) [facility] wt - obtain Normal (applies to {} [place] non-numeric results) [facility] weight - kg 60.0000 {} Normal (applies to 60.0000 {} [place] non-numeric results) [facility] height - cm Normal (applies to {} [place] non-numeric results) [facility] Patient Treatment Plan of Care Planned Activity Planned Date Details Description Data Source (s) 0.9% NaCl IV 09/16/2019 05:09:21 PM [facility]
[2020-01-12 07:31] LABS: POTASSIUM 3.7 mmol/L (3.5-5.1)
[2020-01-12 07:41] LABS: ALBUMIN 3.5 g/dl (3.4-5.0); BILIRUBIN,TOTAL 0.5 mg/dL (0.2-1); BLOOD UREA NITROGEN 8.3 mg/dL (7-18); CALCIUM 8.5 mg/dL (8.5-10.1); CREATININE 0.7 mg/dL (0.55-1.3); MAGNESIUM 2.2 mg/dL (1.8-2.4); PHOSPHOROUS 3.6 mg/dL (2.5-4.9); TOT PROT 6.2 g/dl (6.4-8.2)
--- NOTE | 2020-01-12 09:35 | CON.ORTH ---
Consult Reason for Consultation:: left pelvic fx - Past Medical History Psych: Yes: Depression - Past Surgical History Past Surgical History: Yes: Cholecystectomy (open 2004) - Alcohol/Substance Use Hx Alcohol Use: Yes (SOCIAL) - Smoking History Smoking history: Former smoker Have you smoked in the past 12 months: No Aproximately how many cigarettes per day: 0 If you are a former smoker, when did you quit?: 22 years ago Home Medications - Allergies Allergies/Adverse Reactions: Allergies Allergy/AdvReac Type Severity Reaction Status Date / Time Penicillins Allergy Intermediate Hives Verified 07/04/19 12:07 - Home Medications Home Medications: Ambulatory Orders Buspirone HCl [Buspar -] 30 mg PO DAILY 02/05/18 Benztropine Mesylate [Cogentin -] 0.5 mg PO BID 01/11/20 Haloperidol [Haldol -] 5 mg PO AM 01/11/20 Haloperidol [Haldol -] 10 mg PO HS 01/11/20 Physical Exam for Ortho Vital Signs: Vital Signs Temperature 98 F 01/12/20 06:00 Pulse Rate 97 H 01/12/20 06:00 Respiratory Rate 20 01/12/20 06:00 Blood Pressure 148/61 01/12/20 06:00 O2 Sat by Pulse Oximetry (%) 94 L 01/12/20 02:00 Labs: CBC, BMP 01/12/20 06:43 01/12/20 06:43 INR, PTT INR 1.04 (0.83-1.09) 01/11/20 14:13 - Lower Extremity Hip: Yes: Left, Pain, Swelling, Other (equal limb lengths, + ttp, good rom of hip with minimal pain, nvi) Imaging - Results X-ray: Report Reviewed, Image Reviewed Assessment/Plan 79yo female with PMH of anxiety presents with left hip pain after a fall. States, "I tripped on my own two feet," hit her left hip, did not hit her head or anything else. Denies chest pain, headache, SOB. Denies any other pain. When asked about the bruise on her knee, she said it is two days old and doesn't remember how she got it. Does not remember other falls. states she sometimes crawls to the bathroom at night and has lower back spinal stenosis and pain. Denies any numbness or tingling. a/p left superior and inferior pubic rami fx No surgical intervention PT wbat analgesics prn dvt ppx d/c planning d/w Dr. Sheridan
--- NOTE | 2020-01-12 09:54 | EKG ---
Test Reason : Blood Pressure : / mmHG Vent. Rate : 089 BPM Atrial Rate : 089 BPM P-R Int : 142 ms QRS Dur : 080 ms QT Int : 392 ms P-R-T Axes : 064 006 048 degrees QTc Int : 476 ms SINUS RHYTHM WITH PREMATURE ATRIAL COMPLEXES POSSIBLE LEFT ATRIAL ENLARGEMENT BORDERLINE ECG WHEN COMPARED WITH ECG OF 04-JUL-2019 11:57, PREMATURE ATRIAL COMPLEXES ARE NOW PRESENT Confirmed by LORIE DALAL MD ([id number]) on 01/12/2020 9:53:52 AM Referred By: Confirmed By:LORIE DALAL MD
[2020-01-12] MEDS ORDERED: PT OWN MED DRAWER 7, Y5N ONE ×3 (10:15→21:31)
[2020-01-12] MEDS: ENOXAPARIN NA (PORCINE) 40 MG/0.4 ML DISP.SYRIN SQ SCH (10:16)
[2020-01-12] MEDS: BENZTROPINE MESYLATE 0.5 MG TABLET (FP) PO SCH ×2 (10:18→21:59)
[2020-01-12] MEDS: busPIRone HCL 10 MG TABLET (FP) PO SCH (11:25)
--- NOTE | 2020-01-12 12:54 | PN ---
Physical Exam: SUBJECTIVE: Patient seen and examined at bedside. Endorses extreme pain when she moves her legs. Comfortable at rest. No surgical intervention recommended. OBJECTIVE: Vital Signs Period Temp Pulse Resp BP Sys/Randle Pulse Ox Last 24 Hr 96.9 F-98.3 F 88-100 - 138-184/59-89 94-97 GENERAL: NAD HEAD: Normal with no signs of trauma. EYES: EOMI Sclera Clear NECK: Trachea midline, full range of motion, supple. LUNGS: Clear to ausculation b/l. HEART: RRR S1S2 ABDOMEN: Soft, NDNT. EXTREMITIES: Cannot lift lower legs off of bed due to extreme pain. Equal limb lengths. NEUROLOGICAL: Cranial nerves II through XII grossly intact. SILT throughout. PSYCH: Normal mood, normal affect. Laboratory Results - last 24 hr 01/11/20 01/11/20 01/11/20 14:13 14:13 14:13 WBC 12.0 H RBC 4.32 Hgb 13.1 Hct 38.7 MCV 89.6 MCH 30.3 MCHC 33.8 RDW 12.6 Plt Count 270 MPV 8.4 Absolute Neuts (auto) 10.3 H Neutrophils % 85.8 H Lymphocytes % 8.8 Monocytes % 4.5 Eosinophils % 0.4 Basophils % 0.5 Nucleated RBC % 0 PT with INR 12.30 INR 1.04 PTT (Actin FS) 36.6 H Sodium 129 L Potassium 3.5 Chloride 95 L Carbon Dioxide 25 Anion Gap 10 BUN 6.7 L Creatinine 0.7 Est GFR (CKD-EPI)AfAm 94.84 Est GFR (CKD-EPI)NonAf 81.83 Random Glucose 96 Calcium 8.5 Phosphorus Magnesium Total Bilirubin 0.5 AST 12 L ALT 18 Alkaline Phosphatase 84 Total Protein 6.8 Albumin 3.7 Blood Type Antibody Screen 01/11/20 01/12/20 01/12/20 14:13 06:43 06:43 WBC 6.0 RBC 4.05 Hgb 12.3 Hct 36.3 MCV 89.7 MCH 30.4 MCHC 33.9 RDW 12.7 Plt Count 241 MPV 8.2 Absolute Neuts (auto) 4.2 Neutrophils % 70.6 Lymphocytes % 16.4 D Monocytes % 11.8 H D Eosinophils % 0.5 Basophils % 0.7 Nucleated RBC % 0 PT with INR INR PTT (Actin FS) Sodium 133 L Potassium 3.7 Chloride 99 Carbon Dioxide 27 Anion Gap 8 BUN 8.3 Creatinine 0.7 Est GFR (CKD-EPI)AfAm 94.84 Est GFR (CKD-EPI)NonAf 81.83 Random Glucose 99 Calcium 8.5 Phosphorus 3.6 Magnesium 2.2 Total Bilirubin 0.5 AST 11 L ALT 15 Alkaline Phosphatase 77 Total Protein 6.2 L Albumin 3.5 Blood Type B POSITIVE Antibody Screen Negative Active Medications Generic Name Dose Route Start Last Admin Trade Name Freq PRN Reason Stop Dose Admin Acetaminophen 650 mg 01/11/20 17:13 Tylenol - PO Q4H PRN PAIN LEVEL 4 - 6 Benztropine Mesylate 0.5 mg 01/11/20 22:00 01/12/20 10:18 Cogentin - PO 0.5 mg BID IVY Administration Buspirone HCl 30 mg 01/12/20 10:00 01/12/20 11:25 Buspar - PO 30 mg DAILY IVY Administration Enoxaparin Sodium 40 mg 01/12/20 10:00 01/12/20 10:16 Lovenox - SQ 40 mg DAILY IVY Administration Haloperidol 5 mg 01/12/20 07:00 01/12/20 06:50 Haldol - PO 5 mg AM IVY Administration Haloperidol 10 mg 01/11/20 22:00 01/12/20 01:47 Haldol - PO Not Given HS [facility] Influenza Virus Vaccine 60 mcg 01/12/20 03:49 Flulaval Quad [id number] Syr IM 01/12/20 03:50 .ONCE ONE Oxycodone HCl 5 mg 01/11/20 17:13 01/12/20 10:16 Roxicodone - PO 5 mg Q6H PRN Administration PAIN LEVEL 6-10 ASSESSMENT/PLAN: Patient is an 79 y/o female with a PMH of Schizophrenia who is admitted for left pelvic fracture. #Left pubic Ramus Fracture - as seen on Xray - Dr. Ulrich, orthopedics aware, no surgical management at this time - oxycodone 5 q6h or acetaminophen for pain - knee xray: no evidence of fracture - fall risk precautions, Physical therapy - Pain Management Consult Dr Grant consulted. Recs appreciated #Schizophrenia - haldol 5 mg am - haldol 10 mg pm - benztropine 0.5 mg bid - buspirone 30 mg daily DVT ppx: lovenox 40 sq daily FEN - regular diet Dispo: monitor on med surg, f/u with ortho Visit type - Emergency Visit Emergency Visit: Yes ED Registration Date: 01/11/20 Care time: The patient presented to the Emergency Department on the above date and was hospitalized for further evaluation of their emergent condition. - New Patient This patient is new to me today: Yes Date on this admission: 01/12/20 - Critical Care Critical Care patient: No - Discharge Referral Referred to [facility] Med P.C.: No - Medication Review Med list reviewed for High Risk Meds patients 65 and older: Yes ATTENDING PHYSICIAN STATEMENT I saw and evaluated the patient. I reviewed the resident's note and discussed the case with the resident. I agree with the resident's findings and plan as documented. SUBJECTIVE: OBJECTIVE: ASSESSMENT AND PLAN:
--- NOTE | 2020-01-12 13:44 | PN ---
Teaching Attending Note Name of Resident: Everette Rousseau ATTENDING PHYSICIAN STATEMENT I saw and evaluated the patient. I reviewed the resident's note and discussed the case with the resident. I agree with the resident's findings and plan as documented. SUBJECTIVE: Seen and examined at bedside. Patient is comfortable at rest but has severe solitario n with even small movements. Per orthopedics no surgical intervention. Will consult pain management and physical therapy OBJECTIVE Last Vital Signs Temp Pulse Resp BP Pulse Ox 98 F 97 H 20 148/61 94 L 01/12/20 06:00 01/12/20 06:00 01/12/20 06:00 01/12/20 06:00 01/12/20 02:00 PE: Per resident note Labs/Imaging: reviewed ASSESSMENT/PLAN 7-year-old female with a history of psychiatric illness presents with a mechanical fall resulting in a left pelvic fracture #Left pubic ramus fracture Seen by orthopedics: Nonsurgical intervention Pain management consulted Physical therapy Dispo to rehab #Psychiatric history, anxiety Haldol 5 mg every morning Haldol 10 mg every afternoon Benztropine 0.5 mg twice daily BuSpar 30 mg daily
[2020-01-12 18:02] LABS: EPI CELLS 21 /uL (0-25.1); HYALINE CASTS 0 /uL (0-3.1); PH,URINE 6.5 (5.0-8.0); URINE APPEARANCE CLEAR; URINE BACTERIA 167 /uL (0-1359); URINE BILIRUBIN NEGATIVE (NEGATIVE); URINE COLOR YELLOW; URINE GLUCOSE (UA) NEGATIVE (NEGATIVE); URINE KETONE TRACE (NEGATIVE); URINE LEUK ESTERASE TRACE (NEGATIVE); URINE NITRITE NEGATIVE (NEGATIVE); URINE PROTEIN NEGATIVE (NEGATIVE); URINE RBC 5 /uL (0-23.9); URINE UROBILINOGEN 0.2 mg/dL (0.2-1.0); URINE WBC 19 /uL (0-25.8)
[2020-01-12] MEDS ORDERED: FLU VACCINE (FLULAVAL) PF 60 MCG/0.5 ML SYRINGE 2020-2021 IM ONE (20:30)
[2020-01-13] MEDS: HALOPERIDOL 5 MG TABLET PO SCH ×2 (06:13→21:47)
[2020-01-13 07:36] LABS: HEMATOCRIT 36.3 % (32.4-45.2); HEMOGLOBIN 12.5 GM/dL (10.7-15.3); MCH 31.3 pg (25.7-33.7); MCHC 34.6 g/dl (32.0-36.0); MEAN CELL VOLUME 90.5 fl (80-96); MEAN PLT VOLUME 8.8 fl (7.5-11.1); PLATELET COUNT 238 K/MM3 (134-434); RDW 13.1 % (11.6-15.6); WHITE BLOOD COUNT 6.4 K/mm3 (4.0-10.0)
[2020-01-13 08:06] LABS: BLOOD UREA NITROGEN 6.5 mg/dL (7-18); CALCIUM 8.5 mg/dL (8.5-10.1); CREATININE 0.6 mg/dL (0.55-1.3); PHOSPHOROUS 2.8 mg/dL (2.5-4.9); POTASSIUM 4.1 mmol/L (3.5-5.1)
[2020-01-13] MEDS ORDERED: PT OWN MED DRAWER 7, Y5N ONE ×2 (09:25→21:45)
[2020-01-13] MEDS: ENOXAPARIN NA (PORCINE) 40 MG/0.4 ML DISP.SYRIN SQ SCH (09:28)
[2020-01-13] MEDS: busPIRone HCL 10 MG TABLET (FP) PO SCH (09:28)
[2020-01-13] MEDS: BENZTROPINE MESYLATE 0.5 MG TABLET (FP) PO SCH ×2 (09:29→21:49)
--- NOTE | 2020-01-13 09:40 | PN ---
Progress Note (short form) - Note Progress Note: Ortho Pt seen and examined s/p pelvic fx Selected Entries 01/13/20 06:00 Temperature 98.3 F Pulse Rate 96 H Respiratory 20 Rate Blood Pressure 147/85 decr pain, incr rom nvi a/p PT wbat dvt ppx pain control d/c planning d/w Dr. Sheridan
--- NOTE | 2020-01-13 12:34 | DS ---
Physical Exam: SUBJECTIVE: Patient seen and examined at bedside. No acute events overnight. OBJECTIVE: Vital Signs Period Temp Pulse Resp BP Sys/Randle Pulse Ox Last 24 Hr 98.2 F-98.6 F 96-99 20-20 109-149/54-85 95-99 PHYSICAL EXAM GENERAL: NAD HEAD: Normal with no signs of trauma. EYES: EOMI Sclera Clear NECK: Trachea midline, full range of motion, supple. LUNGS: Clear to ausculation b/l. HEART: RRR S1S2 ABDOMEN: Soft, NDNT. EXTREMITIES: Able to lift both legs off of bed. SILT bilaterally. NEUROLOGICAL: Cranial nerves II through XII grossly intact. SILT throughout. PSYCH: Normal mood, normal affect. LABS Laboratory Results - last 24 hr 01/11/20 01/12/20 01/13/20 16:35 16:43 06:59 WBC 6.4 RBC 4.00 Hgb 12.5 Hct 36.3 MCV 90.5 MCH 31.3 MCHC 34.6 RDW 13.1 Plt Count 238 MPV 8.8 Sodium Potassium Chloride Carbon Dioxide Anion Gap BUN Creatinine Est GFR (CKD-EPI)AfAm Est GFR (CKD-EPI)NonAf Random Glucose Calcium Phosphorus Magnesium Urine Color Yellow Urine Appearance Clear Urine pH 6.5 Ur Specific [place] 1.010 Urine Protein Negative Urine Glucose (UA) Negative Urine Ketones Trace H Urine Blood Negative Urine Nitrite Negative Urine Bilirubin Negative Urine Urobilinogen 0.2 Ur Leukocyte Esterase Trace Urine WBC (Auto) 19 Urine RBC (Auto) 5 Urine Casts (Auto) 0 U Epithel Cells (Auto) 21 Urine Bacteria (Auto) 167 COVID-19 (MAN) Not detected 01/13/20 06:59 WBC RBC Hgb Hct MCV MCH MCHC RDW Plt Count MPV Sodium 133 L Potassium 4.1 Chloride 98 Carbon Dioxide 28 Anion Gap 6 L BUN 6.5 L Creatinine 0.6 Est GFR (CKD-EPI)AfAm 99.77 Est GFR (CKD-EPI)NonAf 86.09 Random Glucose 100 Calcium 8.5 Phosphorus 2.8 Magnesium 2.0 Urine Color Urine Appearance Urine pH Ur Specific [place] Urine Protein Urine Glucose (UA) Urine Ketones Urine Blood Urine Nitrite Urine Bilirubin Urine Urobilinogen Ur Leukocyte Esterase Urine WBC (Auto) Urine RBC (Auto) Urine Casts (Auto) U Epithel Cells (Auto) Urine Bacteria (Auto) COVID-19 (MAN) HOSPITAL COURSE: Date of Admission:01/11/20 Patient is an 79-year-old female with a history of schizophrenia who presented to [facility] due to a mechanical fall resulting in a comminuted left pubic ramus fracture. Patient was evaluated by orthopedic surgery who did not believe any surgical intervention was necessary. pain management was consulted and recommended patient be placed on Tylenol 1000 mg TID IVY, topical lidocaine patch prn for pain, Gabapentin 1000 mg TID for sedation, and oxycodone. Patient unable to ambulate more than 50 feet with PT. Awaiting SNF approval. Patient medically clear for discharge. Date of Discharge: 01/13/20 Minutes to complete discharge: 35 Discharge Summary Problems reviewed: Yes Reason For Visit: FALL Current Active Problems Cannot walk (Acute) Pubic ramus fracture (Acute) Condition: Improved - Instructions Diet, Activity, Other Instructions: You presented to the hospital due to a fall. The surgical team evaluated you and deemed that no surgical intervention was necessary. You will be discharged to a short term nursing facility. It is recommended that you undergo physical therapy while you are there so that you may build your strength again. Please take Tylenol 1000 mg THREE times per day. Do not consume more than 4,000 MG daily. You will also be prescribed Oxycodone 5 mg for pain. Please take this medication every 6 hours as needed ONLY if you have severe pain. Please use lidocaine patch to the area of pain daily as needed. Do NOT use the patch more than 12 hours per day. Please follow up with the orthopedic surgeon within 1 week- Dr Ulrich. Please continue to take all of your home medications as prescribed. Please wear SCDs while in bed (compression device on your lower legs) in rehab. You may stop wearing these once you are able to ambulate. Please return to the emergency department immediately if you begin to experience shortness of breath, chest pain, increasing hip pain, fever, nausea/vomiting, or any other abnormal symptoms. Referrals: Oscar Kim MD [Primary Care Provider] - 1 Week Ramin Ulrich MD [Staff Physician] - 1 Week [facility]position: [facility] - Home Medications Comprehensive Discharge Medication List: Ambulatory Orders Benztropine Mesylate [Cogentin -] 0.5 mg PO BID 01/11/20 Haloperidol [Haldol -] 5 mg PO AM 01/11/20 Haloperidol [Haldol -] 10 mg PO HS 01/11/20 Buspirone HCl [Buspar -] 1 tab PO TID 01/13/20 Lidocaine 5% Patch [Lidoderm -] 1 patch TP DAILY #30 patch 01/13/20 oxyCODONE HCL [Roxicodone -] 5 mg PO Q6H PRN tablet 01/13/20 This patient is new to me today: No Emergency Visit: Yes ED Registration Date: 01/11/20 Care time: The patient presented to the Emergency Department on the above date and was hospitalized for further evaluation of their emergent condition. Critical Care patient: No - Discharge Referral Referred to [facility] Med P.C.: No ATTENDING PHYSICIAN STATEMENT I saw and evaluated the patient. I reviewed the resident's note and discussed the case with the resident. I agree with the resident's findings and plan as documented. SUBJECTIVE: OBJECTIVE: ASSESSMENT AND PLAN:
--- NOTE | 2020-01-13 13:45 | CONSULT ---
Consult Consult Specialty:: Inteventional Spine and Pain Managent Reason for Consultation:: Post Fracture hip Pain - History of Present Illness Chief Complaint: Fracture pain History of Present Illness: The patient sustained a fall in the home. She sustained a right superior and inferior pubic rami fracture. She is beeing followe dby othropedics. She has not pain at rest and 10/10 with movement. She has not been out of bed to chair. She denies numbness tingling or weakness. - History Source History Provided By: Patient - Past Medical History Psych: Yes: Depression - Past Surgical History Past Surgical History: Yes: Cholecystectomy (open 2004) - Alcohol/Substance Use Hx Alcohol Use: Yes (SOCIAL) - Smoking History Smoking history: Former smoker Have you smoked in the past 12 months: No Aproximately how many cigarettes per day: 0 If you are a former smoker, when did you quit?: 22 years ago Home Medications - Allergies Allergies/Adverse Reactions: Allergies Allergy/AdvReac Type Severity Reaction Status Date / Time Penicillins Allergy Intermediate Hives Verified 07/04/19 12:07 - Home Medications Home Medications: Ambulatory Orders Benztropine Mesylate [Cogentin -] 0.5 mg PO BID 01/11/20 Haloperidol [Haldol -] 5 mg PO AM 01/11/20 Haloperidol [Haldol -] 10 mg PO HS 01/11/20 Buspirone HCl [Buspar -] 1 tab PO TID 01/13/20 Lidocaine 5% Patch [Lidoderm -] 1 patch TP DAILY #30 patch 01/13/20 oxyCODONE HCL [Roxicodone -] 5 mg PO Q6H PRN tablet 01/13/20 Review of Systems - Review of Systems Constitutional: reports: No Symptoms Eyes: reports: No Symptoms HENT: reports: No Symptoms Neck: reports: No Symptoms Cardiovascular: reports: No Symptoms Respiratory: reports: No Symptoms Gastrointestinal: reports: No Symptoms Genitourinary: reports: No Symptoms Breasts: reports: No Symptoms Reported Musculoskeletal: reports: Other (Pelvic pain) Physical Exam Vital Signs: Vital Signs Temperature 98.3 F 01/13/20 06:00 Pulse Rate 96 H 01/13/20 06:00 Respiratory Rate 20 01/13/20 06:00 Blood Pressure 147/85 01/13/20 06:00 O2 Sat by Pulse Oximetry (%) 96 01/13/20 09:00 Constitutional: Yes: Well Nourished, No Distress, Calm Eyes: Yes: Conjunctiva Clear, EOM Intact HENT: Yes: Atraumatic, Normocephalic Neck: Yes: Trachea Midline Cardiovascular: Yes: Regular Rate and Rhythm Musculoskeletal: Yes: Other (Pelvic Pain) Neurological: Yes: WNL ...Motor Strength: WNL Psychiatric: Yes: WNL Labs: CBC, BMP 01/13/20 06:59 01/13/20 06:59 Imaging - Results X-ray: Report Reviewed, Image Reviewed Assessment/Plan The patients pain is secondary to pubic rami fracture. Recommend: Multimodal pain management COntinue Oxycodone as written monitor for sedation. Consider Gabapentin 1000 mg TID Monitor for sedation uptitrate as tolerated Topical Lidocaine Patch NSAIDs per primary team and ortho discretion. Standing Tylenol 1000mg TID. Pt oobto chair as tolerated PT/PM&R consult for dispo needs Alberto Grant DO Interventional Spine and Pain Management
--- NOTE | 2020-01-13 14:08 | PN ---
Teaching Attending Note Name of Resident: Everette Rousseau ATTENDING PHYSICIAN STATEMENT I saw and evaluated the patient. I reviewed the resident's note and discussed the case with the resident. I agree with the resident's findings and plan as documented. SUBJECTIVE: Seen and examined at bedside. Patient is comfortable at rest but has severe solitario n with even small movements. Pain management consulted. Will start on standing Tylenol and lidocaine patch with as needed oxycodone. Patient is medically cleared for discharge to rehab OBJECTIVE Last Vital Signs Temp Pulse Resp BP Pulse Ox 98.3 F 96 H 20 147/85 96 01/13/20 06:00 01/13/20 06:00 01/13/20 06:00 01/13/20 06:00 01/13/20 09:00 PE: Per resident note Labs/Imaging: reviewed ASSESSMENT/PLAN 7-year-old female with a history of psychiatric illness presents with a mechanical fall resulting in a left pelvic fracture. Patient was seen by orthopedics who determined that treatment was nonoperative. Seen by pain management for assistance with pain control. Patient is now medically clear for discharge to short-term rehab on her home medications and standing Tylenol, lidocaine patch, and PRN oxycodone. Patient will follow-up with orthopedics and pain management as an outpatient for further management
[2020-01-13] MEDS: oxyCODONE HCL 5 MG TABLET PO PRN (21:46)
[2020-01-14] MEDS ORDERED: PT OWN MED DRAWER 7, Y5N ONE ×4 (06:22→22:11)
[2020-01-14] MEDS: HALOPERIDOL 5 MG TABLET PO SCH ×2 (06:23→22:17)
[2020-01-14] MEDS: busPIRone HCL 10 MG TABLET (FP) PO SCH (10:07)
[2020-01-14] MEDS: ENOXAPARIN NA (PORCINE) 40 MG/0.4 ML DISP.SYRIN SQ SCH (10:08)
[2020-01-14] MEDS: BENZTROPINE MESYLATE 0.5 MG TABLET (FP) PO SCH ×2 (10:08→22:17)
--- NOTE | 2020-01-14 13:28 | PN ---
Progress Note (short form) - Note Progress Note: Ortho Pt seen and examined s/p pelvic fx. Pt was able to ambulate with walker. Selected Entries 01/14/20 10:00 Temperature 98.4 F Pulse Rate 94 H Respiratory 20 Rate Blood Pressure 152/72 decr pain, incr rom nvi a/p PT wbat dvt ppx pain control d/c planning d/w Dr. Sheridan
[2020-01-14] MEDS: oxyCODONE HCL 5 MG TABLET PO PRN ×2 (15:06→22:17)
--- NOTE | 2020-01-14 22:43 | PN ---
Physical Exam: SUBJECTIVE: Patient seen and examined OBJECTIVE: Vital Signs Period Temp Pulse Resp BP Sys/Randle Pulse Ox Last 24 Hr 97.6 F-98.4 F 83-96 20-20 128-153/62-73 92-96 GENERAL: The patient is awake, alert, and fully oriented, in no acute distress. HEAD: Normal with no signs of trauma. EYES: PERRL, extraocular movements intact, sclera anicteric, conjunctiva clear. No ptosis. ENT: Ears normal, nares patent, oropharynx clear without exudates, moist mucous membranes. NECK: Trachea midline, full range of motion, supple. LUNGS: Breath sounds equal, clear to auscultation bilaterally, no wheezes, no crackles, no accessory muscle use. HEART: Regular rate and rhythm, S1, S2 without murmur, rub or gallop. ABDOMEN: Soft, nontender, nondistended, normoactive bowel sounds, no guarding, no rebound, no hepatosplenomegaly, no masses. EXTREMITIES: 2+ pulses, warm, well-perfused, no edema. NEUROLOGICAL: Cranial nerves II through XII grossly intact. Normal speech, gait not observed. PSYCH: Normal mood, normal affect. SKIN: Warm, dry, normal turgor, no rashes or lesions noted Active Medications Generic Name Dose Route Start Last Admin Trade Name Freq PRN Reason Stop Dose Admin Acetaminophen 650 mg 01/11/20 17:13 Tylenol - PO Q4H PRN PAIN LEVEL 4 - 6 Benztropine Mesylate 0.5 mg 01/11/20 22:00 01/14/20 22:17 Cogentin - PO 0.5 mg BID IVY Administration Buspirone HCl 30 mg 01/12/20 10:00 01/14/20 10:07 Buspar - PO 10 mg DAILY IVY Administration Enoxaparin Sodium 40 mg 01/12/20 10:00 01/14/20 10:08 Lovenox - SQ 40 mg DAILY IVY Administration Haloperidol 5 mg 01/12/20 07:00 01/14/20 06:23 Haldol - PO 5 mg AM IVY Administration Haloperidol 10 mg 01/11/20 22:00 01/14/20 22:17 Haldol - PO 10 mg HS IVY Administration Oxycodone HCl 5 mg 01/11/20 17:13 01/14/20 22:17 Roxicodone - PO 5 mg Q6H PRN Administration PAIN LEVEL 6-10 ASSESSMENT/PLAN:
[2020-01-15] MEDS ORDERED: PT OWN MED DRAWER 7, Y5N ONE (05:22)
[2020-01-15] MEDS: HALOPERIDOL 5 MG TABLET PO SCH ×2 (06:05→21:19)
[2020-01-15] MEDS: oxyCODONE HCL 5 MG TABLET PO PRN ×2 (06:08→16:13)
[2020-01-15 07:45] LABS: BASO % 0.9 % (0-2.0); EOS % 1.8 % (0-4.5); HEMATOCRIT 32.2 % (32.4-45.2); HEMOGLOBIN 11.2 GM/dL (10.7-15.3); LYMPH % 16.9 % (8-40); MCH 31.2 pg (25.7-33.7); MCHC 34.8 g/dl (32.0-36.0); MEAN CELL VOLUME 89.5 fl (80-96); MEAN PLT VOLUME 8.7 fl (7.5-11.1); MONO % 8.5 % (3.8-10.2); NEUT % 71.9 % (42.8-82.8); PLATELET COUNT 268 K/MM3 (134-434); RDW 13.2 % (11.6-15.6); WHITE BLOOD COUNT 6.2 K/mm3 (4.0-10.0)
[2020-01-15 08:09] LABS: ALBUMIN 2.9 g/dl (3.4-5.0); BILIRUBIN,TOTAL 0.5 mg/dL (0.2-1); BLOOD UREA NITROGEN 17.8 mg/dL (7-18); CALCIUM 8.6 mg/dL (8.5-10.1); CREATININE 0.6 mg/dL (0.55-1.3); POTASSIUM 4.1 mmol/L (3.5-5.1); TOT PROT 5.9 g/dl (6.4-8.2)
[2020-01-15] MEDS: ENOXAPARIN NA (PORCINE) 40 MG/0.4 ML DISP.SYRIN SQ SCH (09:11)
[2020-01-15] MEDS: busPIRone HCL 10 MG TABLET (FP) PO SCH (09:12)
[2020-01-15] MEDS: BENZTROPINE MESYLATE 0.5 MG TABLET (FP) PO SCH ×2 (09:12→21:19)
--- NOTE | 2020-01-15 15:23 | PN ---
Progress Note (short form) - Note Progress Note: SUBJECTIVE: Seen and examined at bedside. Patient is medically cleared for discharge pending insurance authorization OBJECTIVE Last Vital Signs Temp Pulse Resp BP Pulse Ox 98.5 F 93 H 20 144/71 93 L 01/15/20 14:00 01/15/20 14:00 01/15/20 14:00 01/15/20 14:00 01/15/20 14:00 PE: GEN: NAD HEENT: NC/AT NEAL[place] RESP: CTAB CARDS: RRR, -MRG ABD: soft, nt/nd +BS EXT: No swelling/Edema Neuro: Non-focal, A&OX3 Labs/Imaging: reviewed ASSESSMENT/PLAN 7-year-old female with a history of psychiatric illness presents with a mechanical fall resulting in a left pelvic fracture #Left pubic ramus fracture Seen by orthopedics: Nonsurgical intervention Pain management consulted Physical therapy Dispo to rehab #Psychiatric history, anxiety Haldol 5 mg every morning Haldol 10 mg every afternoon Benztropine 0.5 mg twice daily BuSpar 30 mg daily Visit type - Emergency Visit Emergency Visit: Yes ED Registration Date: 01/11/20 Care time: The patient presented to the Emergency Department on the above date and was hospitalized for further evaluation of their emergent condition. - New Patient This patient is new to me today: No - Critical Care Critical Care patient: No - Medication Review Med list reviewed for High Risk Meds patients 65 and older: Yes
--- NOTE | 2020-01-15 21:49 | PN ---
Teaching Attending Note Name of Resident: Kinjal Peterson ATTENDING PHYSICIAN STATEMENT I saw and evaluated the patient. I reviewed the resident's note and discussed the case with the resident. I agree with the resident's findings and plan as documented. SUBJECTIVE: Patient seen and exmained at bedside, endorses he heard a thump and saw his on the ground, she says she mechanically fell denies syncope. OBJECTIVE: GENERAL: Awake, alert, and fully oriented, in no acute distress. HEAD: Normal with no signs of trauma. EYES: Pupils equal, round and reactive to light, extraocular movements intact EARS, NOSE, THROAT:. Moist mucous membranes. NECK: Normal range of motion, supple without lymphadenopathy, JVD, or masses. LUNGS: Breath sounds equal, clear to auscultation bilaterally. No wheezes, and no crackles. No accessory muscle use. HEART: Regular rate and rhythm, 3/6 upper left border systolic murmur ABDOMEN: Soft, nontender, not distended, normoactive bowel sounds, no guarding, no rebound, no masses. MUSCULOSKELETAL No CVA tenderness. bruising present over left knee LOWER EXTREMITIES no edema, pain over left hip, 2+ pulses R and L DP SKIN: Warm, dry, normal turgor, no rashes or lesions noted, normal capillary refill. ASSESSMENT AND PLAN: 79 F S/p mechanical fall Schizoaffective disorder Hyponatremia Plan: IV hydration w/ NS Send A1c/lipids/TSH obtain Echo Ortho consult Immobilize LLE, pain control w/ IV Tylenol and opioids for severe pain DVT ppx: Heparin SC
--- NOTE | 2020-01-15 21:54 | PN ---
Physical Exam: SUBJECTIVE: Patient seen and examined at bedside, resting comfortably, no overnight events, VSS. OBJECTIVE: GENERAL: calm , sleeping comfortably HEAD: Normal with no signs of trauma. EYES: Pupils equal, round and reactive to light, extraocular movements intact EARS, NOSE, THROAT:. Moist mucous membranes. NECK: Normal range of motion, supple without lymphadenopathy, JVD, or masses. LUNGS: Breath sounds equal, clear to auscultation bilaterally. No wheezes, and no crackles. No accessory muscle use. HEART: Regular rate and rhythm, GUSTAVO+ ABDOMEN: Soft, nontender, not distended, normoactive bowel sounds, no guarding, no rebound, no masses. MUSCULOSKELETAL No CVA tenderness. bruising present over left knee LOWER EXTREMITIES no edema, pain over left hip, 2+ pulses R and L DP SKIN: Warm, dry, normal turgor, no rashes or lesions noted, normal capillary refill. Vital Signs (72 hours) 01/12/20 01/13/20 01/13/20 22:35 06:00 09:00 Temperature 98.6 F 98.3 F Pulse Rate 97 H 96 H Respiratory 20 20 Rate Blood Pressure 149/73 147/85 O2 Sat by Pulse 97 96 96 Oximetry (%) 01/13/20 01/13/20 01/13/20 14:00 21:00 22:00 Temperature 98.3 F 98.4 F Pulse Rate 101 H 93 H Respiratory 14 20 Rate Blood Pressure 151/52 L 143/61 O2 Sat by Pulse 93 L 95 95 Oximetry (%) 01/14/20 01/14/20 01/14/20 06:00 09:00 10:00 Temperature 97.6 F 98.4 F Pulse Rate 83 94 H Respiratory 20 20 Rate Blood Pressure 128/62 152/72 O2 Sat by Pulse 92 L 96 96 Oximetry (%) 01/14/20 01/14/20 01/14/20 17:41 21:00 22:00 Temperature 98.3 F 98.7 F Pulse Rate 96 H 85 Respiratory 20 20 19 Rate Blood Pressure 153/73 137/61 O2 Sat by Pulse 96 96 96 Oximetry (%) 01/15/20 01/15/20 01/15/20 06:00 08:10 14:00 Temperature 97.8 F 98.5 F Pulse Rate 88 93 H Respiratory 20 20 20 Rate Blood Pressure 151/71 144/71 O2 Sat by Pulse 94 L 94 L 93 L Oximetry (%) Laboratory Results - last 24 hr 01/15/20 01/15/20 07:16 07:16 WBC 6.2 RBC 3.60 Hgb 11.2 Hct 32.2 L MCV 89.5 MCH 31.2 MCHC 34.8 RDW 13.2 Plt Count 268 MPV 8.7 Absolute Neuts (auto) 4.5 Neutrophils % 71.9 Lymphocytes % 16.9 Monocytes % 8.5 Eosinophils % 1.8 D Basophils % 0.9 Nucleated RBC % 0 Sodium 136 Potassium 4.1 Chloride 99 Carbon Dioxide 31 Anion Gap 6 L BUN 17.8 Creatinine 0.6 Est GFR (CKD-EPI)AfAm 99.77 Est GFR (CKD-EPI)NonAf 86.09 Random Glucose 95 Calcium 8.6 Total Bilirubin 0.5 AST 10 L ALT 17 Alkaline Phosphatase 74 Total Protein 5.9 L Albumin 2.9 L Home Medications Medication Instructions Recorded RX: Benztropine Mesylate [Cogentin 0.5 mg PO BID 01/11/20 -] RX: Haloperidol [Haldol -] 5 mg PO AM 01/11/20 RX: Haloperidol [Haldol -] 10 mg PO HS 01/11/20 RX: Buspirone HCl [Buspar -] 1 tab PO TID 01/13/20 RX: Lidocaine 5% Patch [Lidoderm -] 1 patch TP DAILY #30 patch 01/13/20 RX: oxyCODONE HCL [Roxicodone -] 5 mg PO Q6H PRN tablet 01/13/20 Current Medications Generic Name Dose Route Start Last Admin Trade Name Minnie PRN Reason Stop Dose Admin Acetaminophen 650 mg 01/11/20 17:13 Tylenol - PO Q4H PRN PAIN LEVEL 4 - 6 Benztropine Mesylate 0.5 mg 01/11/20 22:00 01/15/20 21:19 Cogentin - PO 0.5 mg BID IVY Administration Buspirone HCl 30 mg 01/12/20 10:00 01/15/20 09:12 Buspar - PO 30 mg DAILY IVY Administration Enoxaparin Sodium 40 mg 01/12/20 10:00 01/15/20 09:11 Lovenox - SQ 40 mg DAILY IVY Administration Haloperidol 5 mg 01/12/20 07:00 01/15/20 06:05 Haldol - PO 5 mg AM IVY Administration Haloperidol 10 mg 01/11/20 22:00 01/15/20 21:19 Haldol - PO 10 mg HS IVY Administration Oxycodone HCl 5 mg 01/11/20 17:13 01/15/20 16:13 Roxicodone - PO 5 mg Q6H PRN Administration PAIN LEVEL 6-10 ASSESSMENT AND PLAN: 79 F S/p mechanical fall Schizoaffective disorder Hyponatremia (resolved) Plan: PO hydration, dc fluids avoid overload Not surgical candidate per Ortho Ortho following PT evaluation Awaiting SNF DVT ppx: Lovenox SC Visit type - Emergency Visit Emergency Visit: Yes ED Registration Date: 01/11/20 Care time: The patient presented to the Emergency Department on the above date and was hospitalized for further evaluation of their emergent condition. - New Patient This patient is new to me today: Yes Date on this admission: 01/15/20 - Critical Care Critical Care patient: No - Discharge Referral Referred to [facility] Med P.C.: No - Medication Review Med list reviewed for High Risk Meds patients 65 and older: Yes
[2020-01-16] MEDS: HALOPERIDOL 5 MG TABLET PO SCH ×2 (06:04→22:00)
[2020-01-16] MEDS: busPIRone HCL 10 MG TABLET (FP) PO SCH ×2 (09:50→22:00)
[2020-01-16] MEDS: BENZTROPINE MESYLATE 0.5 MG TABLET (FP) PO SCH ×2 (09:51→22:00)
[2020-01-16] MEDS: ENOXAPARIN NA (PORCINE) 40 MG/0.4 ML DISP.SYRIN SQ SCH (09:51)
[2020-01-16] MEDS: oxyCODONE HCL 5 MG TABLET PO PRN (10:57)
--- NOTE | 2020-01-16 11:02 | DS ---
Physical Exam: SUBJECTIVE: Patient seen and examined OBJECTIVE: Vital Signs Period Temp Pulse Resp BP Sys/Randle Pulse Ox Last 24 Hr 98 F-98.5 F 93-105 20-20 100-158/70-80 93-97 PHYSICAL EXAM GENERAL: The patient is awake, alert, and fully oriented, in no acute distress. HEAD: Normal with no signs of trauma. EYES: PERRL, extraocular movements intact, sclera anicteric, conjunctiva clear. ENT: Ears normal, nares patent, oropharynx clear without exudates, moist mucous membranes. NECK: Trachea midline, full range of motion, supple. LUNGS: Breath sounds equal, clear to auscultation bilaterally, no wheezes, no crackles, no accessory muscle use. HEART: Regular rate and rhythm, S1, S2 without murmur, rub or gallop. ABDOMEN: Soft, nontender, nondistended, normoactive bowel sounds, no guarding, no rebound, no hepatosplenomegaly, no masses. EXTREMITIES: 2+ pulses, warm, well-perfused, no edema. NEUROLOGICAL: Cranial nerves II through XII grossly intact. Normal speech, gait not observed. PSYCH: Normal mood, normal affect. SKIN: Warm, dry, normal turgor, no rashes or lesions noted. LABS HOSPITAL COURSE: Date of Admission:01/11/20 Patient is an 79 y/o female with a psychiatric history who wsa admitted for left pelvic fracture. The surgical team reviewd patient and the fracture will be treated with non surgical management. Patient will need rehab and is being discharged to [facility] Date of Discharge: 01/16/20 Discharge Summary Problems reviewed: Yes Reason For Visit: FALL Current Active Problems Cannot walk (Acute) Pubic ramus fracture (Acute) Condition: Improved - Instructions Diet, Activity, Other Instructions: You presented to the hospital due to a fall. The surgical team evaluated you and deemed that no surgical intervention was necessary. You will be discharged to a short term nursing facility. It is recommended that you undergo physical therapy while you are there so that you may build your strength again. Please take Tylenol 1000 mg THREE times per day. Do not consume more than 4,000 MG daily. You will also be prescribed Oxycodone 5 mg for pain. Please take this medication every 6 hours as needed ONLY if you have severe pain. Please use lidocaine patch to the area of pain daily as needed. Do NOT use the patch more than 12 hours per day. Please follow up with the orthopedic surgeon within 1 week- Dr Ulrich. Please continue to take all of your home medications as prescribed. Please return to the emergency department immediately if you begin to experience shortness of breath, chest pain, increasing hip pain, fever, nausea/vomiting, or any other abnormal symptoms. Referrals: Oscar Kim MD [Primary Care Provider] - 1 Week Ramin Ulrich MD [Staff Physician] - 1 Week Disposition: HALF-WAY FACILITY - Home Medications Comprehensive Discharge Medication List: Ambulatory Orders Benztropine Mesylate [Cogentin -] 0.5 mg PO BID 01/11/20 Haloperidol [Haldol -] 5 mg PO AM 01/11/20 Haloperidol [Haldol -] 10 mg PO HS 01/11/20 Buspirone HCl [Buspar -] 1 tab PO TID 01/13/20 Lidocaine 5% Patch [Lidoderm -] 1 patch TP DAILY #30 patch 01/13/20 oxyCODONE HCL [Roxicodone -] 5 mg PO Q6H PRN tablet 01/13/20 - Discharge Referral Referred to [facility] Med P.C.: No ATTENDING PHYSICIAN STATEMENT I saw and evaluated the patient. I reviewed the resident's note and discussed the case with the resident. I agree with the resident's findings and plan as documented. SUBJECTIVE: OBJECTIVE: ASSESSMENT AND PLAN:
--- NOTE | 2020-01-16 12:36 | PN ---
Teaching Attending Note Name of Resident: Kinjal Peterson ATTENDING PHYSICIAN STATEMENT I saw and evaluated the patient. I reviewed the resident's note and discussed the case with the resident. I agree with the resident's findings and plan as documented. SUBJECTIVE: Seen and examined at bedside. Patient is medically cleared for discharge. Requ ested to speak with ortho team again prior to DC. OBJECTIVE Last Vital Signs Temp Pulse Resp BP Pulse Ox 98.4 F 105 H 20 158/80 96 01/16/20 06:00 01/16/20 06:00 01/16/20 06:00 01/16/20 06:00 01/16/20 09:00 PE: GEN: NAD HEENT: NC/AT NEALLL RESP: CTAB CARDS: RRR, -MRG ABD: soft, nt/nd +BS EXT: No swelling/Edema Neuro: Non-focal, A&OX3 Labs/Imaging: reviewed ASSESSMENT/PLAN 7-year-old female with a history of psychiatric illness presents with a mechanical fall resulting in a left pelvic fracture. Seen by orthopedics and determined to be nonoperative. Patient is medically cleared for discharge to rehab. #Left pubic ramus fracture Seen by orthopedics: Nonsurgical intervention Pain management consulted Physical therapy Dispo to rehab #Psychiatric history, anxiety Haldol 5 mg every morning Haldol 10 mg every afternoon Benztropine 0.5 mg twice daily BuSpar 30 mg daily
--- NOTE | 2020-01-16 13:14 | PN ---
Progress Note (short form) - Note Progress Note: Ortho Pt seen and examined s/p pelvic fx. She continues to improve. Selected Entries 01/16/20 06:00 Temperature 98.4 F Pulse Rate 105 H Respiratory 20 Rate Blood Pressure 158/80 decr pain, incr rom nvi a/p d/w in detail- No surgical intervention PT wbat dvt ppx pain control ok to d/c from ortho pov d/w Dr. Sheridan
--- NOTE | 2020-01-16 15:18 | PN ---
Physical Exam: SUBJECTIVE: Patient seen this morning and is upset about not having surgery. OBJECTIVE: Vital Signs Period Temp Pulse Resp BP Sys/Randle Pulse Ox Last 24 Hr 98 F-98.7 F 100-105 20-20 100-158/60-80 96-98 GENERAL: Awake, alert, and fully oriented, in no acute distress. HEAD: Normal with no signs of trauma. EYES: Pupils equal, round and reactive to light, extraocular movements intact EARS, NOSE, THROAT:. Moist mucous membranes. NECK: Normal range of motion, supple without lymphadenopathy, JVD, or masses. LUNGS: Breath sounds equal, clear to auscultation bilaterally. No wheezes, and no crackles. No accessory muscle use. HEART: Regular rate and rhythm, 3/6 upper left border systolic murmur ABDOMEN: Soft, nontender, not distended, normoactive bowel sounds, no guarding, no rebound, no masses. MUSCULOSKELETAL No CVA tenderness. bruising over left knee LOWER EXTREMITIES no edema, pain over left hip, 2+ pulses R and L DP SKIN: Warm, dry, normal turgor, no rashes or lesions noted, normal capillary refill. Active Medications Generic Name Dose Route Start Last Admin Trade Name Freq PRN Reason Stop Dose Admin Acetaminophen 650 mg 01/11/20 17:13 Tylenol - PO Q4H PRN PAIN LEVEL 4 - 6 Benztropine Mesylate 0.5 mg 01/11/20 22:00 01/16/20 09:51 Cogentin - PO 0.5 mg BID IVY Administration Buspirone HCl 30 mg 01/12/20 10:00 01/16/20 09:50 Buspar - PO 10 mg DAILY IVY Administration Enoxaparin Sodium 40 mg 01/12/20 10:00 01/16/20 09:51 Lovenox - SQ 40 mg DAILY IVY Administration Haloperidol 5 mg 01/12/20 07:00 01/16/20 06:04 Haldol - PO 5 mg AM IVY Administration Haloperidol 10 mg 01/11/20 22:00 01/15/20 21:19 Haldol - PO 10 mg HS IVY Administration Oxycodone HCl 5 mg 01/11/20 17:13 01/16/20 10:57 Roxicodone - PO 5 mg Q6H PRN Administration PAIN LEVEL 6-10 ASSESSMENT/PLAN: Patient is an 79 y/o female with a psychiatric history who is admitted for left pelvic fracture. #Left pelvic fracture - as seen on Xray - Dr. Ulrich, orthopedics aware, no surgical management at this time - oxycodone 5 q6h or acetaminophen for pain - knee xray: no evidence of fracture - fall risk precautions #psychiatric hx, anxiety - haldol 5 mg am - haldol 10 mg pm - benztropine 0.5 mg bid - buspirone 30 mg daily #systolic murmur - unclear if new, if signs of syncope consider echo DVT ppx: lovenox 40 sq daily FEN - regular diet Dispo: stable for discharge to [facility] but patient requesting a second orthopedic consult Visit type - Emergency Visit Emergency Visit: No - New Patient This patient is new to me today: Yes Date on this admission: 01/16/20 - Critical Care Critical Care patient: No - Medication Review Med list reviewed for High Risk Meds patients 65 and older: Yes ATTENDING PHYSICIAN STATEMENT I saw and evaluated the patient. I reviewed the resident's note and discussed the case with the resident. I agree with the resident's findings and plan as documented. SUBJECTIVE: OBJECTIVE: ASSESSMENT AND PLAN:
--- NOTE | 2020-01-16 18:25 | CONSULT ---
Consult - text type - Consultation Consultation Note: ORTHOPEDIC SURGERY CONSULTATION NOTE Department of Orthopedic Surgery HISTORY OF PRESENT ILLNESS Ms. Hoyos is a 79 year old female with a past medical history significant for psych history, anxiety, depression, chronic lower back pain, and Lumbar stenosis (recently diagnosed) who presents to the emergency department via EMS s/p a mechanical fall. The patient reports she was walking when she tripped and fell. Denies LOC or head injury. The patient reports associated pain to her left hip and difficulty/unable to ambulate. The orthopedic service was consulted for a second opinion on her injury and the treatment plan. The patient notes pain in the left pelvis and hip, worsens with ambulating and movement, improves with rest. Denies any other injuries. Denies numbness, tingling or other constitution al complaints. Denies tobacco use, drug use, alcohol abuse. The patient lives at home and uses no assistive devices at baseline. FAMILY HISTORY non-contributory REVIEW OF SYMPTOMS A twelve-point review of systems was performed and was negative except as noted in HPI. PHYSICAL EXAM Right Upper Extremity: Skin warm, dry, and intact; no lesions, rashes or ulcers noted. Muscle mass equal and symmetric to contralateral side. No atrophy noted. No masses or effusions noted. No tenderness to palpation all joints; nontender throughout rest of extremity. Full passive and active ROM, free from pain. Joints stable with no pathologic laxity. M/R/U/MSK/AX motor intact; SILT distally; 2+ radial pulses; Cap refill brisk. Tone and reflexes normal. Left Upper Extremity: Skin warm, dry, and intact; no lesions, rashes or ulcers noted. Muscle mass equal and symmetric to contralateral side. No atrophy noted. No masses or effusions noted. No tenderness to palpation all joints; nontender throughout rest of extremity. Full passive and active ROM, free from pain. Joints stable with no pathologic laxity. M/R/U/MSK/AX motor intact; SILT distally; 2+ radial pulses; Cap refill brisk. Tone and reflexes normal. Right Lower Extremity: Skin warm, dry, and intact; no lesions, rashes or ulcers noted. Muscle mass equal and symmetric to contralateral side. No atrophy noted. No masses or effusions noted. No tenderness to palpation, negative log roll, able to SLR; nontender throughout rest of extremity. No cords or calf tenderness No significant calf/ankle edema. Full passive and active ROM, free from pain. Joints stable with no pathologic laxity. EHL/TA/GS motor intact; SILT distally; 2+ DP pulses; Cap refill brisk. Tone and reflexes normal. Left Lower Extremity: Skin warm, dry, and intact; no lesions, rashes or ulcers noted. Muscle mass equal and symmetric to contralateral side. No atrophy noted. No masses or effusions noted. Tender to palpation at the pubic symphysis; Slight bruising over the knee. Negative Log Roll test, unable to SLR without pain; nontender throughout rest of extremity. No cords or calf tenderness; No significant calf/ankle edema. Full passive and active ROM of the left knee, and ankle, free from pain. Joints stable with no pathologic laxity. EHL/TA/GS motor intact; SILT distally; 2+ DP pulses; Cap refill brisk. Tone and reflexes normal. Active Problems Problem Status Category Onset Cannot walk Acute Medical Pubic ramus fracture Acute Medical Past Medical History Psych Depression Past Surgical History Past Surgical History Cholecystectomy Social History Smoking history Former smoker Aproximately how many 0 cigarettes per day If you are a former smoker, 22 years ago when did you quit? Hx Alcohol Use Yes: SOCIAL Allergies Allergy/AdvReac Type Severity Reaction Status Date / Time Penicillins Allergy Intermediate Hives Verified 07/04/19 12:07 Active Medications Generic Name Dose Route Start Last Admin Trade Name Freq PRN Reason Stop Dose Admin Acetaminophen 650 mg 01/11/20 17:13 Tylenol - PO Q4H PRN PAIN LEVEL 4 - 6 Benztropine Mesylate 0.5 mg 01/11/20 22:00 01/16/20 09:51 Cogentin - PO 0.5 mg BID IVY Administration Buspirone HCl 10 mg 01/16/20 22:00 Buspar - PO TID IVY Enoxaparin Sodium 40 mg 01/12/20 10:00 01/16/20 09:51 Lovenox - SQ 40 mg DAILY IVY Administration Haloperidol 5 mg 01/12/20 07:00 01/16/20 06:04 Haldol - PO 5 mg AM IVY Administration Haloperidol 10 mg 01/11/20 22:00 01/15/20 21:19 Haldol - PO 10 mg HS IVY Administration Oxycodone HCl 5 mg 01/11/20 17:13 01/16/20 10:57 Roxicodone - PO 5 mg Q6H PRN Administration PAIN LEVEL 6-10 Vital Signs (last) Temp Pulse Resp BP Pulse Ox 98.7 F 104 H 20 132/60 98 01/16/20 14:00 01/16/20 14:00 01/16/20 14:00 01/16/20 14:00 01/16/20 14:00 Intake and Output 01/14/20 01/15/20 01/16/20 23:59 23:59 23:59 Intake Total 700 1080 600 Output Total 600 1400 600 Balance 100 -320 0 Intake: IV 0 0 0 SL 0 0 0 IVPB 0 0 0 Oral 700 1080 600 Output: Urine 600 1400 600 External Catheter 600 1400 600 Other: Voiding Method External Catheter External Catheter External Catheter # Unmeasured Voids External Catheter 2 2 2 Bowel Movement No No No Laboratory 01/15/20 07:16 01/15/20 07:16 PT with INR 12.30 SEC (9.7-13.0) 01/11/20 14:13 PTT (Actin FS) 36.6 SECONDS (25.2-36.5) H 01/11/20 14:13 IMAGING I personally reviewed all radiographs, CT, and other imaging. They demonstrate a superior and inferior pubic rami fracture. ASSESSMENT AND PLAN Ms. Hoyos is an 79 year old female presenting status post mechanical fall with a left sided superior and inferior pubic rami fracture. We have reviewed the imaging and clinical findings in detail, as well as their potential implic ations. After appropriate informed discussion, we agreed on the following plan. 1. Pain control 2. DVT ppx 3. Agree with Dr. Sheridan/Serg's plan on WBAT LLE with assistance; PT daily. 4. Continue medical management. 5. No further orthopedic surgical intervention at this time. All questions were answered. Thank you for involving our team in the care of this patient.
[2020-01-16] MEDS ORDERED: PT OWN MED DRAWER 7, Y5N ONE (20:13)
[2020-01-17] MEDS ORDERED: PT OWN MED DRAWER 7, Y5N ONE ×2 (05:00→09:25)
[2020-01-17] MEDS: busPIRone HCL 10 MG TABLET (FP) PO SCH (05:16)
[2020-01-17] MEDS: HALOPERIDOL 5 MG TABLET PO SCH (06:16)
[2020-01-17 07:01] VITALS: BP 132/65; PULSE 85; TEMP 98.2
[2020-01-17] MEDS: ENOXAPARIN NA (PORCINE) 40 MG/0.4 ML DISP.SYRIN SQ SCH (09:36)
[2020-01-17] MEDS: BENZTROPINE MESYLATE 0.5 MG TABLET (FP) PO SCH (09:37)
[2020-01-17] MEDS ORDERED: BISACODYL 10 MG SUPP.RECT PR ONE (11:00)
--- NOTE | 2020-01-17 12:33 | PN ---
Teaching Attending Note Name of Resident: Everette Rousseau ATTENDING PHYSICIAN STATEMENT I saw and evaluated the patient. I reviewed the resident's note and discussed the case with the resident. I agree with the resident's findings and plan as documented. SUBJECTIVE: Seen and examined at bedside. Patient is medically cleared for discharge. To b e transferred to SNF today for rehab OBJECTIVE Last Vital Signs Temp Pulse Resp BP Pulse Ox 98.2 F 85 20 132/65 98 01/17/20 06:58 01/17/20 06:58 01/17/20 06:58 01/17/20 06:58 01/17/20 09:00 PE: GEN: NAD HEENT: NC/AT MITCH RESP: CTAB CARDS: RRR, -MRG ABD: soft, nt/nd +BS EXT: No swelling/Edema Neuro: Non-focal, A&OX3 Labs/Imaging: reviewed ASSESSMENT/PLAN 7-year-old female with a history of psychiatric illness presents with a mechanical fall resulting in a left pubic ramus fracture. Seen by orthopedics and determined to be nonoperative. Patient is medically cleared for discharge to rehab. She will follow-up with orthopedics and pain management as an outpatient. She can be otherwise continued on her home medications
--- NOTE | 2020-01-17 17:04 | DS ---
Physical Exam: OBJECTIVE: Vital Signs Period Temp Pulse Resp BP Sys/Randle Pulse Ox Last 24 Hr 98.2 F-98.4 F 85-103 20-20 132-140/65-66 94-98 LABS HOSPITAL COURSE: Date of Admission:01/11/20 Patient is an 79-year-old female with a history of schizophrenia who presented to [facility] with a mechanical fall resulting in a left pubic ramus fracture. Patient was evaluated by national insurance officer orthopedic surgery who did not feel that any surgical intervention was necessary. Pain management, Dr Grant, was consulted who recommended Tylenol 1000 mg TID IVY, topical lidocaine patch prn for pain, Gabapentin 1000 mg TID for sedation, and Oxycodone 5 mg Q6H PRN. Patient was ev aluated by PT and it was recommended that patient be discharged to SNF as she was unable to ambulate 50 feet. During admission, patient requested to have a second orthopedic evaluation of her left sided superior and inferior pubic rami fracture. Dr Kolb was consulted who also did not believe the patient required any surgical intervention. Patient was finally discharged to SNF. Date of Discharge: 01/17/20 Minutes to complete discharge: 35 Discharge Summary Problems reviewed: Yes Reason For Visit: FALL Condition: Improved - Instructions Diet, Activity, Other Instructions: You presented to the hospital due to a fall. The surgical team evaluated you and deemed that no surgical intervention was necessary. You will be discharged to a short term nursing facility. It is recommended that you undergo physical therapy while you are there so that you may build your strength again. Please take Tylenol 1000 mg THREE times per day. Do not consume more than 4,000 MG daily. You will also be prescribed Oxycodone 5 mg for pain. Please take this medication every 6 hours as needed ONLY if you have severe pain. Please use lidocaine patch to the area of pain daily as needed. Do NOT use the patch more than 12 hours per day. Please follow up with the orthopedic surgeon within 1 week- Dr Ulrich. Please continue to take all of your home medications as prescribed. Please wear SCDs while in bed (compression device on your lower legs) in rehab. You may stop wearing these once you are able to ambulate. Please return to the emergency department immediately if you begin to experience shortness of breath, chest pain, increasing hip pain, fever, nausea/vomiting, or any other abnormal symptoms. Referrals: Oscar Kim MD [Primary Care Provider] - 1 Week Ramin Ulrich MD [Staff Physician] - 1 Week Disposition: [facility]WAY FACILITY - Home Medications Comprehensive Discharge Medication List: Ambulatory Orders Benztropine Mesylate [Cogentin -] 0.5 mg PO BID 01/11/20 Haloperidol [Haldol -] 5 mg PO AM 01/11/20 Haloperidol [Haldol -] 10 mg PO HS 01/11/20 Buspirone HCl [Buspar -] 1 tab PO TID 01/13/20 Lidocaine 5% Patch [Lidoderm -] 1 patch TP DAILY #30 patch 01/13/20 oxyCODONE HCL [Roxicodone -] 5 mg PO Q6H PRN tablet 01/13/20 This patient is new to me today: No Emergency Visit: Yes ED Registration Date: 01/11/20 Care time: The patient presented to the Emergency Department on the above date and was hospitalized for further evaluation of their emergent condition. Critical Care patient: No - Discharge Referral Referred to [facility] No ATTENDING PHYSICIAN STATEMENT I saw and evaluated the patient. I reviewed the resident's note and discussed the case with the resident. I agree with the resident's findings and plan as documented. SUBJECTIVE: OBJECTIVE: ASSESSMENT AND PLAN:
== END 2020-01-17 12:52 | DRG 536 ==
LOC: JER 13:20 → J8W 16:10
PROVIDERS: ATTEND Internal Medicine
DX: S32.592A Other specified fracture of left pubis, initial encounter for closed fracture (principal); E87.1 Hypo-osmolality and hyponatremia; F32.9 Major depressive disorder, single episode, unspecified; F25.9 Schizoaffective disorder, unspecified; F41.9 Anxiety disorder, unspecified; R01.1 Cardiac murmur, unspecified; M48.061 Spinal stenosis, lumbar region without neurogenic claudication; W01.0XXA Fall on same level from slipping, tripping and stumbling without subsequent striking against object, initial encounter; Y93.89 Activity, other specified; Y92.098 Other place in other non-institutional residence as the place of occurrence of the external cause; Y99.8 Other external cause status; Z88.0 Allergy status to penicillin; G89.29 Other chronic pain; M54.5 Low back pain
CPT/HCPCS: 36415; 70450-TC; 71045-TC-FY; 72125-TC; 72192-TC; 73523-TC-FY; 73562-TC-LT-FY; 80048; 80053; 81003; 83735; 84100; 85025; 85027; 85610; 85730; 86850; 86900; 86901; 93005; 93010; 97116-GP; 97162-GP; 99285-25; G0008; J0131; Q2036; U0003

== ENCOUNTER 2021-07-21 19:34 | Emergency (ER) | payer OTHER ==
[2021-07-21 20:13] VITALS: BP 178/76; PULSE 89; TEMP 97.7; BMI 23.4
[2021-07-21 22:14] LABS: URINE APPEARANCE CLEAR; URINE BILIRUBIN NEGATIVE (NEGATIVE); URINE COLOR YELLOW; URINE GLUCOSE (UA) NEGATIVE (NEGATIVE); URINE KETONE NEGATIVE (NEGATIVE); URINE LEUK ESTERASE NEGATIVE (NEGATIVE); URINE NITRITE NEGATIVE (NEGATIVE); URINE PROTEIN NEGATIVE (NEGATIVE); URINE UROBILINOGEN 0.2 mg/dL (0.2-1.0)
[2021-07-21 22:28] LABS: BASO % 0.9 % (0-2.0); EOS % 1.1 % (0-4.5); HEMATOCRIT 40.5 % (32.4-45.2); LYMPH % 20.8 % (8-40); MCH 31.1 pg (25.7-33.7); MCHC 34.6 g/dl (32.0-36.0); MEAN CELL VOLUME 89.8 fl (80-96); MEAN PLT VOLUME 9.1 fl (7.5-11.1); MONO % 6.5 % (3.8-10.2); NEUT % 70.7 % (42.8-82.8); PLATELET COUNT 256 10^3/uL (134-434); RBC 4.51 M/mm3 (3.60-5.2); RDW 13.2 % (11.6-15.6); WHITE BLOOD COUNT 7.9 K/mm3 (4.0-10.0)
[2021-07-21 22:38] LABS: CALCIUM 9.4 mg/dL (8.5-10.1)
[2021-07-21 22:39] LABS: ALBUMIN 3.9 g/dl (3.4-5.0); BLOOD UREA NITROGEN 11.2 mg/dL (7-18)
[2021-07-21 22:42] LABS: CREATININE 0.8 mg/dL (0.55-1.3)
[2021-07-21 22:43] LABS: BILIRUBIN,TOTAL 0.4 mg/dL (0.2-1)
[2021-07-21 22:44] LABS: TOT PROT 7.4 g/dl (6.4-8.2)
[2021-07-21 22:46] LABS: COCAINE, UR NEGATIVE (NEGATIVE); METHADONE, UR NEGATIVE (NEGATIVE); OPIATES, URI NEGATIVE (NEGATIVE); PHENCYCLIDINE,URINE NEGATIVE (NEGATIVE); URINE AMPHETAMINES NEGATIVE (NEGATIVE); URINE BARBITURATES NEGATIVE (NEGATIVE); URINE BENZODIAZEPINES NEGATIVE (NEGATIVE)
[2021-07-23 08:06] LABS: SARS-CoV-2 NAA Not Detected (Not Detected)
== END 2021-07-21 23:34 | disposition home or self-care (01) ==
LOC: JER 19:34
DX: F20.0 Paranoid schizophrenia (principal)
CPT/HCPCS: 36415; 80053; 80307; 81003; 84484; 85025; 93005; 93010; 99284-25; C9803-CS; U0003; U0005

== ENCOUNTER 2022-08-23 10:01 | Emergency (ER) | payer OTHER ==
[2022-08-23] MEDS ORDERED: IBUPROFEN 400 MG TABLET (FP) PO ONE ×2 (10:13→10:15)
[2022-08-23 10:17] VITALS: BP 195/83; PULSE 81; RESP 16; TEMP 98.3; BMI 23.2
== END 2022-08-23 11:38 | disposition home or self-care (01) ==
LOC: FER 10:01
DX: R07.81 Pleurodynia (principal); S20.211A Contusion of right front wall of thorax, initial encounter; W18.09XA Striking against other object with subsequent fall, initial encounter; Y93.89 Activity, other specified; Y92.000 Kitchen of unspecified non-institutional (private) residence as the place of occurrence of the external cause
CPT/HCPCS: 71101-TC-RT-FY; 99283-25

== ENCOUNTER 2022-08-25 08:16 | Emergency (ER) | payer OTHER ==
[2022-08-25] MEDS ORDERED: oxyCODONE HCL 5 MG TABLET PO ONE (08:27)
[2022-08-25] MEDS ORDERED: LIDOCAINE 5% TOPICAL PATCH TP ONE (08:29)
[2022-08-25 08:38] VITALS: BP 168/70; PULSE 75; RESP 20; TEMP 98.1; BMI 23.4
[2022-08-25] MEDS ORDERED: oxyCODONE HCL 5 MG TABLET ONE (08:40)
[2022-08-25] MEDS ORDERED: LIDOCAINE 5% TOPICAL PATCH ONE (08:40)
[2022-08-25] MEDS ORDERED: LIDOCAINE PATCH REMOVAL MC SCH (22:00)
== END 2022-08-25 09:10 | disposition home or self-care (01) ==
LOC: FER 08:16
DX: R07.81 Pleurodynia (principal); W18.30XA Fall on same level, unspecified, initial encounter
CPT/HCPCS: 99283-25

== ENCOUNTER 2022-09-01 14:07 | Emergency (ER) | payer OTHER ==
[2022-09-01 14:31] VITALS: RESP 20; BMI 20.5
[2022-09-01] MEDS ORDERED: ACETAMINOPHEN 500 MG TABLET (FP) PO ONE (15:20)
[2022-09-01] MEDS ORDERED: ACETAMINOPHEN 325 MG TABLET (FP) ONE (15:40)
[2022-09-01] MEDS ORDERED: KETOROLAC TROMETHAMINE 15 MG/ML VIAL IM ONE (17:10)
[2022-09-01] MEDS ORDERED: oxyCODONE HCL 5 MG TABLET PO ONE (17:12)
[2022-09-01] MEDS ORDERED: KETOROLAC TROMETHAMINE 15 MG/ML VIAL ONE (17:14)
[2022-09-01] MEDS ORDERED: oxyCODONE HCL 5 MG TABLET ONE (17:27)
[2022-09-01 18:00] VITALS: BP 155/85; PULSE 80; TEMP 98.2
== END 2022-09-01 18:00 | disposition home or self-care (01) ==
LOC: JER 14:07
PROC: 3E0233Z Introduction of Anti-inflammatory into Muscle, Percutaneous Approach (ICD-10-PCS; principal; 2022-09-01)
DX: S42.201A Unspecified fracture of upper end of right humerus, initial encounter for closed fracture (principal); W01.0XXA Fall on same level from slipping, tripping and stumbling without subsequent striking against object, initial encounter; Y93.02 Activity, running
CPT/HCPCS: 70450-TC; 73030-TC-RT-FY; 99284-25

== ENCOUNTER 2023-02-05 00:39 | Emergency (ER) | payer OTHER ==
[2023-02-05 00:44] VITALS: BP 148/84; PULSE 78; RESP 16; TEMP 97.6; BMI 21.1
== END 2023-02-05 01:01 | disposition home or self-care (01) ==
LOC: FER 00:39
DX: Z03.89 Encounter for observation for other suspected diseases and conditions ruled out (principal)
CPT/HCPCS: 99282-25

== ENCOUNTER 2023-05-05 12:50 | Emergency (ER) | payer OTHER ==
[2023-05-05] MEDS ORDERED: ACETAMINOPHEN 500 MG TABLET (FP) PO ONE (12:56)
[2023-05-05 13:03] VITALS: BP 158/85; PULSE 97; RESP 16; TEMP 98.2; BMI 23.8
[2023-05-05] MEDS ORDERED: ACETAMINOPHEN 500 MG TABLET (FP) ONE (13:06)
== END 2023-05-05 14:06 | disposition home or self-care (01) ==
LOC: FER 12:50
DX: S20.211A Contusion of right front wall of thorax, initial encounter (principal); W01.0XXA Fall on same level from slipping, tripping and stumbling without subsequent striking against object, initial encounter; Y92.009 Unspecified place in unspecified non-institutional (private) residence as the place of occurrence of the external cause
CPT/HCPCS: 71101-TC-RT-FY; 99283-25

== ENCOUNTER 2023-06-27 12:02 | Emergency (ER) | payer OTHER ==
[2023-06-27 12:35] VITALS: BMI 19.4
[2023-06-27 14:40] LABS: BASO % 0.5 % (0-2.0); EOS % 0.4 % (0-4.5); HEMATOCRIT 43.1 % (32.4-45.2); HEMOGLOBIN 14.3 GM/dL (10.7-15.3); LYMPH % 13.4 % (8-40); MCHC 33.1 g/dl (32.0-36.0); MEAN CELL VOLUME 90.6 fl (80-96); MEAN PLT VOLUME 8.1 fl (7.5-11.1); MONO % 4.1 % (3.8-10.2); NEUT % 81.6 % (42.8-82.8); PLATELET COUNT 308 10^3/uL (134-434); RBC 4.75 M/mm3 (3.60-5.2); RDW 13.2 % (11.6-15.6); WHITE BLOOD COUNT 8.8 K/mm3 (4.0-10.0)
[2023-06-27 14:46] LABS: INR 1.03 (0.83-1.09)
[2023-06-27 14:49] LABS: ACTIVATED PTT 51.4 SECONDS (25.2-36.5)
[2023-06-27 15:02] LABS: EPI CELLS 7 /uL (0-25.1); HYALINE CASTS 0 /uL (0-3.1); URINE APPEARANCE CLEAR; URINE BACTERIA 50 /uL (0-1359); URINE BILIRUBIN NEGATIVE (NEGATIVE); URINE COLOR YELLOW; URINE GLUCOSE (UA) NEGATIVE (NEGATIVE); URINE KETONE TRACE (NEGATIVE); URINE LEUK ESTERASE 1+ (NEGATIVE); URINE NITRITE NEGATIVE (NEGATIVE); URINE PROTEIN NEGATIVE (NEGATIVE); URINE RBC 5 /uL (0-23.9); URINE UROBILINOGEN 0.2 mg/dL (0.2-1.0); URINE WBC 13 /uL (0-25.8)
[2023-06-27 15:05] LABS: POTASSIUM 4.4 mmol/L (3.5-5.1)
[2023-06-27 15:10] LABS: CALCIUM 9.4 mg/dL (8.5-10.1)
[2023-06-27 15:11] LABS: ALBUMIN 3.8 g/dl (3.4-5.0); BLOOD UREA NITROGEN 14.2 mg/dL (7-18)
[2023-06-27 15:14] LABS: CREATININE 0.8 mg/dL (0.55-1.3)
[2023-06-27 15:15] LABS: BILIRUBIN,TOTAL 0.5 mg/dL (0.2-1); TOT PROT 7.5 g/dl (6.4-8.2)
[2023-06-27] MEDS ORDERED: DIPHTH,PERTUSS(ACELL),TET 0.5 ML DISP.SYRIN IM ONE (15:30)
[2023-06-27] MEDS: DIPHTH,PERTUSS(ACELL),TET 0.5 ML DISP.SYRIN IM ONE (15:33)
[2023-06-27 16:25] VITALS: RESP 18
[2023-06-27] MEDS ORDERED: NITROFURANTOIN MACROCRYSTAL 50 MG CAPSULE (FP) ONE (18:23)
[2023-06-27 18:27] VITALS: BP 121/67; PULSE 81; TEMP 98.2
[2023-06-27] MEDS: NITROFURANTOIN MONOHYD/M-CRYST 100 MG CAPSULE PO ONE (18:31)
== END 2023-06-27 18:31 | disposition left against medical advice (07) ==
LOC: JER 12:02
PROC: 3E0234Z Introduction of Serum, Toxoid and Vaccine into Muscle, Percutaneous Approach (ICD-10-PCS; principal; 2023-06-27)
DX: R55 Syncope and collapse (principal); N30.00 Acute cystitis without hematuria; Z20.822 Contact with and (suspected) exposure to COVID-19
CPT/HCPCS: 0241U-QW; 36415; 70450-TC; 71045-TC-FY; 72125-TC; 80053; 81003; 84484; 85025; 85610; 85730; 87086; 87186; 90471; 90715; 99285-25

== ENCOUNTER 2024-09-19 00:47 | Emergency (ER) | payer OTHER ==
[2024-09-19 00:55] VITALS: TEMP 97.5; BMI 23.4
[2024-09-19 01:50] LABS: URINE APPEARANCE CLEAR; URINE BILIRUBIN NEGATIVE (NEGATIVE); URINE COLOR YELLOW; URINE GLUCOSE (UA) NEGATIVE (NEGATIVE); URINE KETONE NEGATIVE (NEGATIVE); URINE LEUK ESTERASE NEGATIVE (NEGATIVE); URINE NITRITE NEGATIVE (NEGATIVE); URINE PROTEIN NEGATIVE (NEGATIVE); URINE UROBILINOGEN 0.2 mg/dL (0.2-1.0)
[2024-09-19 01:56] VITALS: BP 166/72; PULSE 72; RESP 16
[2024-09-19 02:12] LABS: HEMOGLOBIN 12.7 g/dL (11.2-15.7); MCHC 32.6 g/dl (32.2-35.5); MEAN CELL VOLUME 93.3 fl (79.4-94.8); MEAN PLT VOLUME 11.9 fl (9.4-12.3); PLATELET COUNT 303 x10^3/uL (182-369); RDW 13.3 % (12.5-17.0)
[2024-09-19 02:43] LABS: BLOOD UREA NITROGEN 15.6 mg/dL (7-18); CALCIUM 9.9 mg/dL (8.5-10.1); CREATININE 0.8 mg/dL (0.55-1.3); POTASSIUM 4.1 mmol/L (3.5-5.1)
[2024-09-19 02:44] LABS: ALBUMIN 3.6 g/dl (3.4-5.0); BILIRUBIN,TOTAL 0.3 mg/dL (0.2-1); TOT PROT 6.6 g/dl (6.4-8.2)
== END 2024-09-19 03:20 | disposition home or self-care (01) ==
LOC: FER 00:47
DX: R33.9 Retention of urine, unspecified (principal)
CPT/HCPCS: 36415; 80053; 81003; 85027; 87086; 99283-25

== ENCOUNTER 2024-11-30 13:30 | Emergency (ER) | payer OTHER ==
[2024-11-30 13:51] VITALS: BP 132/71; PULSE 88; RESP 18; TEMP 98.4; BMI 23.2
== END 2024-11-30 19:43 | disposition home or self-care (01) ==
LOC: FER 13:30
DX: S22.088A Other fracture of T11-T12 vertebra, initial encounter for closed fracture (principal); R07.89 Other chest pain; W01.0XXA Fall on same level from slipping, tripping and stumbling without subsequent striking against object, initial encounter; Y93.G3 Activity, cooking and baking
CPT/HCPCS: 71101-TC-RT-FY; 72070-TC-FY; 72100-TC-FY; 72128-TC; 99284-25